=== PATIENT | female | born 1975 | race Caucasian/White ===

== ENCOUNTER 2018-05-04 17:54 | Emergency (ER) | payer BC, SELFPAY ==
--- OUTSIDE RECORDS SUMMARY | 2018-05-04 17:57 | XMS REPORT | Continuity of Care Document ---
:1975 Author Organization Interface Problems Problem Status Onset Date Classification Date Comments Source Reported Medications Medication Details Route Status Patient Ordering Order Source Instructions Provider Date Allergies, Adverse Reactions, Alerts Substance Category Reaction Severity Reaction Status Date Comments Source type Reported Immunizations Immunization Date Given Site Status Last Updated Comments Source Results Order Results Value Reference Date Interpretation Comments Source Name Range Vital Signs Vital Sign Value Date Comments Source Encounters Location Location Encounter Encounter Reason Attending ADM DC Status Source Details Type Number For Provider Date Date Visit Outpatient [id number] [place] 05/04 [facility] Outpatient [id number] [place] 06/[address] Procedures Procedure Code Date Perfomer Comments Source
[2018-05-04] MEDS ORDERED: FENTANYL CITR 100 MCG/2 ML ONE (18:46)
[2018-05-04] MEDS ORDERED: DEXAMETHASONE 10 MG/ML VIAL ONE (18:47)
[2018-05-04] MEDS ORDERED: NA CHLORIDE 0.9% 100 ML IV ONE (18:48)
[2018-05-04] MEDS ORDERED: METHOCARBAMOL 1,000 MG/10 ML VIAL IV ONE (18:48)
[2018-05-04] MEDS ORDERED: NA CHLORIDE 0.9% 250 ML ONE (18:48)
[2018-05-04] MEDS ORDERED: KETOROLAC 30 MG/ML INJ ONE (18:48)
--- NOTE | 2018-05-04 19:55 | RAD REPORT ---
EXAM DESCRIPTION: MRI - C Spine Wo Cont - 05/04/2018 7:33 pm CLINICAL HISTORY: Bilateral arm numbness COMPARISON: None TECHNIQUE: Magnetic resonance imaging of the cervical spine was obtained with coronal and sagittal r econstruction FINDINGS: C2-3, C3-4, C4-5, C5-6 C6-7 and C7-T1 demonstrate no significant abnormality. Small osteophytes within the mid cervical spine do not significantly encroach upon the thecal sac/carmita ral foramina. The spinal cord is normal caliber and signal. No abnormal signal within the bones is noted. IMPRESSION: Minimal spondylosis . No significant abnormality is displayed
[2018-05-04 20:38] LABS: Absolute Lymphocytes (CBC) 1.9 K/uL (0.7-4.9); Absolute Monocytes 0.3 K/uL (0.1-1.3); Absolute Neutrophil 10.6 K/uL (1.8-8.0); Basophils % 0.4 % (0-1.3); Eosinophils % 0.4 % (0-4.4); Hematocrit 38.7 % (36.0-45.0); Lymphocytes % 14.6 % (15.3-44.8); MCH 30.9 pg (27.0-35.0); MCV 89.4 fL (80-100); MPV 8.4 fL (7.6-11.3); Monocytes % 2.7 % (3.3-12.3); RBC Red Blood Cell Count 4.33 M/uL (3.86-4.86)
[2018-05-04 20:56] LABS: ALT/SGPT 30 U/L (12-78); AST/SGOT 12 U/L (15-37); Albumin 3.7 g/dL (3.4-5.0); Alkaline Phosphatase 78 U/L (45-117); BUN Blood Urea Nitrogen 10 mg/dL (7-18); Bicarbonate 27 mmol/L (21-32); Bilirubin Direct < 0.1 mg/dL (0-0.2); Bilirubin Total 0.3 mg/dL (0.2-1.0); Glucose Level 102 mg/dL (74-106); Magnesium 2.3 mg/dL (1.8-2.4); Potassium 3.9 mmol/L (3.5-5.1); Protein, Total 7.1 g/dL (6.4-8.2); Sodium Level 142 mmol/L (136-145); Thyroid Stimulating Hormone 0.768 uIU/mL (0.360-3.740); Troponin (Emerg Dept Use Only) < 0.02 ng/mL (0.0-0.045)
--- NOTE | 2018-05-04 21:08 | ER ---
Nurse's Notes [facility] Name: Luisa Lake Age: 42 yrs Sex: Female : 1975 Arrival Date: 05/04/2018 Time: 17:59 Bed 10 Private MD: Diagnosis: Neuralgia and neuritis, unspecified;Paresthesia of skin;Sprain of ligaments of cervical spine Presentation: 05/04 18:16 Presenting complaint: Patient states: "THE SORE THROAT STARTED A COUPLE OF DAYS. AND I rv FELT THE BURNING SENSATION LIKE THREE DAYS AGO. I WAS GIVEN A SHOT OF TORADOL AND PREDNISONE IN [place]. IT HELPED ME FOR QUITE SOME TIME.". Transition of care: patient was not received from another setting of care. Onset of symptoms was May 02, 2018 at 08:00. Risk Assessment: Do you want to hurt yourself or someone else? Patient reports no desire to harm self or others. Initial Sepsis Screen: Does the patient meet any 2 criteria? No. Patient's initial sepsis screen is negative. Does the patient have a suspected source of infection? No. Patient's initial sepsis screen is negative. Care prior to arrival: None. 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 - Social history:: Smoking status: Patient uses tobacco products, smokes one pack cigarettes per day. - Ebola Screening: : Patient negative for fever greater than or equal to 101.5 degrees Fahrenheit, and additional compatible Ebola Virus Disease symptoms Patient denies exposure to infectious person Patient denies travel to an Ebola-affected area in the 21 days before illness onset. Screenin:23 Abuse screen: Denies threats or abuse. Denies injuries from another. Nutritional rv screening: No deficits noted. Tuberculosis screening: No symptoms or risk factors identified. Fall Risk None identified. Assessment: 18:22 General: Appears in no apparent distress. comfortable, Behavior is calm, cooperative. rv Pain: Complains of pain in THROAT. Neuro: Level of Consciousness is awake, alert, obeys commands, Oriented to person, place, time, situation. Cardiovascular: Capillary refill < 3 seconds. Respiratory: Airway is patent Respiratory effort is even, Breath sounds are clear bilaterally. GI: No signs and/or symptoms were reported involving the gastrointestinal system. : No signs and/or symptoms were reported regarding the genitourinary system. EENT: Throat. Derm: Skin is intact. 21:01 Reassessment: Patient appears in no apparent distress at this time. Patient and/or rv family updated on plan of care and expected duration. Pain level reassessed. Patient is alert, oriented x 3, equal unlabored respirations, skin warm/dry/pink. 22:20 Reassessment: Patient appears in no apparent distress at this time. Patient and/or rv family updated on plan of care and expected duration. Pain level reassessed. Patient is alert, oriented x 3, equal unlabored respirations, skin warm/dry/pink. patient was given turkey sandwich, potato chips, and a cup of apple juice. 23:20 Reassessment: Patient appears in no apparent distress at this time. Patient and/or rv family updated on plan of care and expected duration. Pain level reassessed. Patient is alert, oriented x 3, equal unlabored respirations, skin warm/dry/pink. DR WYATT SEEN AND EXAMINED THE PATIENT. Vital Signs: 18:18 BP 137 / 84; Pulse 86; Pulse Ox 98% on R/A; Weight 86.18 kg (R); rv 21:03 BP 141 / 66; Pulse 63; Pulse Ox 99% on R/A; rv 23:20 BP 138 / 72; Pulse 76; Pulse Ox 98% on R/A; rv ED Course: 17:59 Patient arrived in ED. mr 18:18 Alexx Lozano PA is PHCP. jr8 18:18 Gian Bonds MD is Attending Physician. jr8 18:18 Triage completed. rv 18:23 Arm band placed on right wrist. rv 18:23 Patient has correct armband on for positive identification. Bed in low position. Call rv light in reach. Side rails up X 1. Pulse ox on. NIBP on. 18:45 Inserted saline lock: 20 gauge in right forearm, using aseptic technique. rv 19:27 C Spine Wo Cont Sent. rv 19:33 C Spine Wo Cont In Process Unspecified. EDMS 21:06 Jaret Ayala MD is Referral Physician. jr8 21:12 Dennys Wyatt MD is Hospitalizing Provider. jr8 23:08 Jaret Ayala MD is Referral Physician. jr8 23:21 No provider procedures requiring assistance completed. IV discontinued, bleeding rv controlled, No redness/swelling at site. Pressure dressing applied. Administered Medications: 18:45 Drug: Robaxin 1 grams Route: IVPB; Infused Over: 1 hrs; Site: right forearm; rv 23:20 Follow up: IV Status: Completed infusion rv 18:45 Drug: Decadron - Dexamethasone 10 mg Route: IVP; Site: right forearm; rv 20:30 Follow up: Response: No adverse reaction rv 18:45 Drug: fentaNYL (PF) 75 mcg Route: IVP; Site: right forearm; rv 20:30 Follow up: Response: No adverse reaction rv 18:45 Drug: TORadol 30 mg Route: IVP; Site: right forearm; rv 20:30 Follow up: Response: No adverse reaction rv Outcome: 21:07 Discharge ordered by MD. jr8 21:13 Decision to Hospitalize by Provider. jr8 23:09 Discharge ordered by MD. jr8 23:21 Discharged to home ambulatory. rv 23:21 Condition: good 23:21 Discharge instructions given to patient, Instructed on discharge instructions, follow up and referral plans. medication usage, Demonstrated understanding of instructions, follow-up care, medications, Prescriptions given X 1. 23:22 Patient left the ED. rv Signatures: Dispatcher [facility] Isi Centeno Felicia RN RN fc Alexx Lozano PA PA jr8 Silver Flanagan RN RN rv Corrections: (The following items were deleted from the chart) 21:31 18:16 Acuity: TYSHAWN 4 rv fc
--- NOTE | 2018-05-04 21:08 | EDPHYS ---
Physician Documentation [facility] Name: Luisa Lake Age: 42 yrs Sex: Female : 1975 Arrival Date: 05/04/2018 Time: 17:59 Bed 10 Private MD: ED Physician Gian Bonds HPI: 05/04 19:02 This 42 yrs old Female presents to ER via Ambulatory with complaints of Neck jr8 pain, numbness, tingling. 19:02 The patient or guardian complains of decreased range of motion, pain. The symptoms are jr8 located diffusely. Onset: The symptoms/episode began/occurred acutely, 6 day(s) ago, and became worse and became persistent Has been going on for several weeks . Associated signs and symptoms: Pertinent positives: numbness, Paresthesias tingling, weakness. Severity of symptoms: At their worst the symptoms were moderate, in the emergency department the symptoms are unchanged. The patient has not experienced similar symptoms in the past. The patient has been recently seen by a physician:. Patient seen by GIOVANY Daily twice last week for pain to neck along with numbness, tingling, weakness of both arms. Denies trauma. Came to ED today for continued/worsening of pain. Now having burning sensation to anterior neck with tightening feeling . 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 - Social history:: Smoking status: Patient uses tobacco products, smokes one pack cigarettes per day. - Ebola Screening: : Patient negative for fever greater than or equal to 101.5 degrees Fahrenheit, and additional compatible Ebola Virus Disease symptoms Patient denies exposure to infectious person Patient denies travel to an Ebola-affected area in the 21 days before illness onset. ROS: 19:02 Eyes: Negative for injury, pain, redness, and discharge, ENT: Negative for injury, jr8 pain, and discharge, Cardiovascular: Negative for chest pain, palpitations, and edema, Respiratory: Negative for shortness of breath, cough, wheezing, and pleuritic chest pain, Abdomen/GI: Negative for abdominal pain, nausea, vomiting, diarrhea, and constipation, Back: Negative for injury and pain, MS/Extremity: Negative for injury and deformity, Skin: Negative for injury, rash, and discoloration. 19:02 Neck: Positive for pain with movement, pain at rest, tenderness. 19:02 Neuro: Positive for numbness, tingling, of the neck. Exam: 19:02 Head/Face: Normocephalic, atraumatic. Eyes: Pupils equal round and reactive to light, jr8 extra-ocular motions intact. Lids and lashes normal. Conjunctiva and sclera are non-icteric and not injected. Cornea within normal limits. Periorbital areas with no swelling, redness, or edema. ENT: Nares patent. No nasal discharge, no septal abnormalities noted. Tympanic membranes are normal and external auditory canals are clear. Oropharynx with no redness, swelling, or masses, exudates, or evidence of obstruction, uvula midline. Mucous membranes moist. Chest/axilla: Normal chest wall appearance and motion. Nontender with no deformity. No lesions are appreciated. Cardiovascular: Regular rate and rhythm with a normal S1 and S2. No gallops, murmurs, or rubs. Normal PMI, no JVD. No pulse deficits. Respiratory: Lungs have equal breath sounds bilaterally, clear to auscultation and percussion. No rales, rhonchi or wheezes noted. No increased work of breathing, no retractions or nasal flaring. Abdomen/GI: Soft, non-tender, with normal bowel sounds. No distension or tympany. No guarding or rebound. No evidence of tenderness throughout. Back: No spinal tenderness. No costovertebral tenderness. Full range of motion. Skin: Warm, dry with normal turgor. Normal color with no rashes, no lesions, and no evidence of cellulitis. MS/ Extremity: Pulses equal, no cyanosis. Neurovascular intact. Full, normal range of motion. 19:02 Neuro: Awake and alert, GCS 15, oriented to person, place, time, and situation. Cranial nerves II-XII grossly intact. Motor strength 5/5 in all extremities. Sensory grossly intact. Cerebellar exam normal. Normal gait. 19:02 Neck: External neck: tenderness, that is moderate, of the left mid cervical area, right mid cervical area, left trapezius, lower cervical area and right trapezius, C-spine: vertebral tenderness, that is moderate, appreciated at C5, C6 and C7, Thyroid: appears normal, Trachea: is midline with no obvious abnormalities, ROM/movement: pain, that is moderate, with any movement, Meningeal signs: are not present, Kernig's sign is negative, Brudzinski's sign is negative, Lymph nodes: no appreciated lymphadenopathy. Vital Signs: 18:18 BP 137 / 84; Pulse 86; Pulse Ox 98% on R/A; Weight 86.18 kg (R); rv 21:03 BP 141 / 66; Pulse 63; Pulse Ox 99% on R/A; rv 23:20 BP 138 / 72; Pulse 76; Pulse Ox 98% on R/A; rv MDM: 18:18 Patient medically screened. jr8 21:04 Differential diagnosis: arthritis, Cervical Disc Herniation Cervical Discogenic Pain jr8 Cervical Facet Syndrome Cervical Raiculopathy Cervical Spondylosis cervical strain, Degenerative Disc Disease Epidural Abcess Spondylosis discitis. Data reviewed: I have discussed the patient's presentation/case with the attending Emergency Department Physician;. Data reviewed: vital signs, nurses notes, diagnostic data from outside facility, CBC, white blood cell count, hemoglobin, hematocrit, platelets, reticulocyte count, electrolytes, sodium, potassium, chloride, serum bicarbonate, BUN, creatinine, serum glucose, radiologic studies, CT scan, plain films, lab test result(s), radiologic studies, MRI. Counseling: I had a detailed discussion with the patient and/or guardian regarding: the historical points, exam findings, and any diagnostic results supporting the discharge/admit diagnosis, lab results, radiology results. Response to treatment: the patient's symptoms have mildly improved after treatment. 21:21 ED course: Consulted Dr. Wyatt and Dr. Redmond on case. Dr. Wyatt will evaluate down in ED jr8 as well since patient is having such odd neurologic symptoms without acute findings on imaging or blood work . 23:07 Data interpreted: Pulse oximetry: on room air is 99 %. Interpretation: normal. jr8 Counseling: I had a detailed discussion with the patient and/or guardian regarding: the need for outpatient follow up, a neurologist, to return to the emergency department if symptoms worsen or persist or if there are any questions or concerns that arise at home. ED course: Dr. Wyatt evaluated patient and agrees that patient can go home for further outpatient workup. No indication for admission at this time. Patient is good with this and will f/u with Dr. Ayala . 05/04 20:11 Order name: Basic Metabolic Panel [facility] 05/04 20:11 Order name: CBC with Diff; Complete Time: 20:58 [facility] 05/04 20:11 Order name: LFT's [facility] 05/04 20:11 Order name: Magnesium [facility] 05/04 20:11 Order name: Troponin (emerg Dept Use Only) [facility] 05/04 20:11 Order name: ESR; Complete Time: 20:58 [facility] 05/04 18:36 Order name: C Spine Wo Cont; Complete Time: 19:57 EDMS 05/04 20:11 Order name: CRP [facility] 05/04 20:11 Order name: TSH; Complete Time: 20:58 [facility] 05/04 20:12 Order name: Basic Metabolic Panel; Complete Time: 20:58 EDMS 05/04 20:12 Order name: Liver (Hepatic) Function; Complete Time: 20:58 EDMS 05/04 20:12 Order name: Magnesium; Complete Time: 20:58 EDMS 05/04 20:12 Order name: Troponin (Emerg Dept Use Only); Complete Time: 20:58 EDMS 05/04 20:12 Order name: C-Reactive Protein; Complete Time: 20:58 EDMS 05/04 18:35 Order name: IV; Complete Time: 19:27 [facility] 05/04 20:11 Order name: Labs collected and sent; Complete Time: 20:29 [facility] 05/04 20:11 Order name: O2 Per Protocol; Complete Time: 20:29 [facility] 05/04 20:11 Order name: O2 Sat Monitoring; Complete Time: 20:30 [facility] Administered Medications: 18:45 Drug: Robaxin 1 grams Route: IVPB; Infused Over: 1 hrs; Site: right forearm; rv 23:20 Follow up: IV Status: Completed infusion rv 18:45 Drug: Decadron - Dexamethasone 10 mg Route: IVP; Site: right forearm; rv 20:30 Follow up: Response: No adverse reaction rv 18:45 Drug: fentaNYL (PF) 75 mcg Route: IVP; Site: right forearm; rv 20:30 Follow up: Response: No adverse reaction rv 18:45 Drug: TORadol 30 mg Route: IVP; Site: right forearm; rv 20:30 Follow up: Response: No adverse reaction rv Disposition: 05/05 09:28 Co-signature as Attending Physician, Gian Bonds MD I agree with the assessment and kaleb plan of care. Disposition: 05/04/18 23:09 Discharged to Home. Impression: Neuralgia and neuritis, unspecified, Paresthesia of skin, Sprain of ligaments of cervical spine. - Condition is Stable. - Discharge Instructions: Neuropathic Pain, Paresthesia, Cervical Sprain. - Medication Reconciliation Form, Thank You Letter, Antibiotic Education, Prescription Opioid Use form. - Follow up: Jaret Ayala MD; When: 2 - 3 days; Reason: Recheck today's complaints, Continuance of care, Re-evaluation by your physician. - Problem is new. - Symptoms have improved. - Notes: Do not take the tramadol that was previously prescribed Can continue the Gabapentin and Robaxin Signatures: Dispatcher [employer] EDGain Dang MD MD cha Roszak, Josh, PA PA [facility] Silver Flanagan RN RN rv Corrections: (The following items were deleted from the chart) 05/04 21:08 19:02 Onset: The symptoms/episode began/occurred acutely, 6 day(s) ago, kit pantoja 21:12 21:04 Data reviewed: vital signs, nurses notes, diagnostic data from outside facility, Zechariah CBC, white blood cell count, hemoglobin, hematocrit, platelets, reticulocyte count, electrolytes, sodium, potassium, chloride, serum bicarbonate, BUN, creatinine, serum glucose, radiologic studies, CT scan, plain films, lab test result(s), radiologic studies, MRI, Zechariah 21:12 21:04 Counseling: I had a detailed discussion with the patient and/or guardian kit regarding: the historical points, exam findings, and any diagnostic results supporting the discharge/admit diagnosis, lab results, radiology results, the need for outpatient follow up, a neurologist, to return to the emergency department if symptoms worsen or persist or if there are any questions or concerns that arise at home, kit 21:12 21:07 05/04/2018 21:07 Discharged to Home. Impression: Strain of muscle, fascia and jr8 tendon at neck level; Paresthesia of skin. Condition is Stable. Forms are Medication Reconciliation Form, Thank You Letter, Antibiotic Education, Prescription Opioid Use. Follow up: Jaret Ayala; When: 1 - 2 days; Reason: Recheck today's complaints, Continuance of care, Re-evaluation by your physician. Problem is new. Symptoms have improved. jr8 21:20 21:13 Hospitalization Ordered by Dennys Wyatt MD for Observation. Preliminary jr8 diagnosis is Paresthesia of skin; Neuralgia and neuritis, unspecified; Intractable pain. Bed requested for Telemetry/MedSurg (observation). Status is Observation. Condition is Stable. Problem is new. Symptoms have improved. UTI on Admission? No. jr8 23:22 23:09 05/04/2018 23:09 Discharged to Home. Impression: Neuralgia and neuritis, rv unspecified; Paresthesia of skin; Sprain of ligaments of cervical spine. Condition is Stable. Forms are Medication Reconciliation Form, Thank You Letter, Antibiotic Education, Prescription Opioid Use. Follow up: Jaret Ayala; When: 2 - 3 days; Reason: Recheck today's complaints, Continuance of care, Re-evaluation by your physician. Problem is new. Symptoms have improved. jr8
--- NOTE | 2018-05-05 03:52 | CON ---
Reason For Consultation: The patient with generalized pain and body aches. History Of Present Illness: This is a 42-year-old female who has a prior history of a T12 compression fracture and chronic pain as well as a prior diagnosis of fibromyalgia, who has been following up with a neurologist on and off for many years. She has stopped seeing the neurologist about 3 years ago, but followed up with him per recommendations from the emergency room and her primary care provider. She started feeling poorly about a week ago when she went to [facility]; and at that time, they gave her anti-inflammatories, steroids, muscle relaxers, and pain medication for discharge. She was also given Neurontin along with Zoloft and tramadol for pain. She was also placed on a statin, for what reason I am not really sure. Especially, in light of her myopathy, I think this was a poor choice of medications. The patient was sent to the ER as she was not getting any better; and once again, she was given similar treatments along with Robaxin. The patient followed up with Dr. Noel , her primary care provider, and then she followed up with Dr. Ayala, her neurologist. Dr. Ayala recommended only taking the Robaxin and the Neurontin. The patient was also advised by Dr. Ayala to get multiple lab testing as well as imaging studies. Here, she had an MRI of her C-spine, which did not reveal any significant abnormalities except for some minimal spondylosis. There was no cord compression. The patient has had a lot of stressors in her life. Few years ago, her ; and then a year ago, her best friend ; and about a month ago, her mother . Unfortunately, she has dealt with a lot of deaths in her family and in her close friends, which has made her life extremely difficult. She has a lot of tension and stress, and she had actually filed a lawsuit against her 's job for him dying while he was at work. This has created a lot of stress in her life. I believe a lot of stressors in her life have ultimately led to a lot of her pain. She does have muscle tenderness on examination. Neurologically, her neurologic examination was unremarkable. She does have point tenderness on the back on both sides of her cervical spine and thoracic spine as well as anteriorly. She has some difficulty swallowing, and she said she had some microscopic hematuria. All of this can be evaluated and worked up further as an outpatient. Clinically, at this time, the patient does not need emergent hospitalization. She can follow up with her neurologist and primary care provider to get further assessment and treatment of her medical condition. MCC, she will need treatment for her anxiety, and her numerous stressors if she wants to live any decent quality of life. Otherwise, her symptoms will probably progress, and she will deal with more physical ailments as days progress. Review of Systems: A 10-point review of systems is otherwise unremarkable. Past Medical History: Dyslipidemia and chronic low back pain. Past Surgical History: and hysterectomy. Allergies: TO MORPHINE, IODINE, PENICILLIN, PEANUTS, LATEX, AND RUBBER. Social History: The patient smokes a pack a day. Denies any drugs or alcohol use. Family History: Noncontributory. Medications: Medications have been reviewed. - Vital Signs Temperature: 98.6 F Blood Pressure: 138/72 Pulse: 76 Respirations: 18 Pulse Ox (%): 96 - Physical Exam General: Alert, In no apparent distress, Oriented x3 HEENT: Atraumatic, Normocephalic, PERRLA, Mucous membr. moist/pink Neck: Supple, 2+ carotid pulse no bruit, JVD not distended, No Thyromegaly, No LAD Respiratory: Clear to auscultation bilaterally, Normal air movement Cardiovascular: Regular rate/rhythm, Normal S1 S2, No murmurs Gastrointestinal: Normal bowel sounds, Soft and benign, Non-distended, No tenderness, No rebound, No guarding Musculoskeletal: No clubbing, No swelling, No contractures, Tenderness Integumentary: No rashes Neurological: Normal gait, Normal speech, Normal strength at 5/5 x4 extr, Normal tone, Sensation intact, Cranial nerves 3-12 intact, Normal reflexes 2+ Other Physical/Emotional Findings: Fundus/ophthalmic exam: no abnormality exceot minimal steel wiring in the nasal branch of retinal artery; no papillaedema Laboratory Data: Labs have been reviewed. Assessment: 1. The patient with chronic pain and myopathy. 2. Psychogenic back pain. 3. Depression. Plan: Plan at this time is to continue with Neurontin along with a muscle relaxer. She has been advised not to take the tramadol because she gets flushing. We will prescribe her on [place] 10/325 one p.o. q.12 hours and give her 20 pills. She will need to follow with a pain specialist, but the main thing she really needs is counseling regarding all the deaths that she has faced in her life recently. Hopefully, she will be able to get a handle of this , and she will be able to start living life a little more normally. She is stable for discharge as she does not meet criteria for inpatient. She does not need to be admitted for observation as she has had numerous workups and numerous followups with physicians and specialists recently. She does need outpatient followup; and hopefully, they can get her symptoms controlled. TABITHA Voice ID: [id number] Report ID: [id number]
--- NOTE | 2018-05-05 05:50 | P.HP ---
Physical Examination - Vital Signs Temperature: 98.6 F Blood Pressure: 138/72 Pulse: 76 Respirations: 18 Pulse Ox (%): 96 - Physical Exam General: Alert, In no apparent distress, Oriented x3 HEENT: Atraumatic, Normocephalic, PERRLA, Mucous membr. moist/pink Neck: Supple, 2+ carotid pulse no bruit, JVD not distended, No Thyromegaly, No LAD Respiratory: Clear to auscultation bilaterally, Normal air movement Cardiovascular: Regular rate/rhythm, Normal S1 S2, No murmurs Gastrointestinal: Normal bowel sounds, Soft and benign, Non-distended, No tenderness, No rebound, No guarding Musculoskeletal: No clubbing, No swelling, No contractures, Tenderness Integumentary: No rashes Neurological: Normal gait, Normal speech, Normal strength at 5/5 x4 extr, Normal tone, Sensation intact, Cranial nerves 3-12 intact, Normal reflexes 2+ Other Physical/Emotional Findings: Fundus/ophthalmic exam: no abnormality exceot minimal steel wiring in the nasal branch of retinal artery; no papillaedema - Studies Laboratory Data (last 24 hrs) 05/04/18 20:25: WBC 12.9 H, Hgb 13.4, Hct 38.7, Plt Count 258 05/04/18 20:25: Sodium 142, Potassium 3.9, BUN 10, Creatinine 0.70, Glucose 102 , Magnesium 2.3, Total Bilirubin 0.3, AST 12 L, ALT 30, Alkaline Phosphatase 78 Assessment & Plan - Advance Directives Does patient have a Living Will: No Does patient have a Durable POA for Healthcare: No
--- NOTE | 2018-05-05 05:56 | P.CNS ---
Date of Consult: 05/04/18 Reason for Consult: Point tenderness and uncontrolled pain Requesting Physician: Jam Redmond Primary Care Provider: tanner Chief Complaint: The patient with generalized pain and body aches. History of Present Illness: History Of Present Illness: This is a 42-year-old female who has a prior history of a T12 compression fracture and chronic pain as well as a prior diagnosis of fibromyalgia, who has been following up with a neurologist on and off for many years. She has stopped seeing the neurologist about 3 years ago, but followed up with him per recommendations from the emergency room and her primary care provider. She started feeling poorly about a week ago when she went to [facility]; and at that time, they gave her anti-inflammatories, steroids, muscle relaxers, and pain medication for discharge. She was also given Neurontin along with Zoloft and tramadol for pain. She was also placed on a statin, for what reason I am not really sure. Especially, in light of her myopathy, I think this was a poor choice of medications. The patient was sent to the ER as she was not getting any better; and once again, she was given similar treatments along with Robaxin. The patient followed up with Dr. Noel , her primary care provider, and then she followed up with Dr. Ayala, her neurologist. Dr. Ayala recommended only taking the Robaxin and the Neurontin. The patient was also advised by Dr. Ayala to get multiple lab testing as well as imaging studies. Here, she had an MRI of her C-spine, which did not reveal any significant abnormalities except for some minimal spondylosis. There was no cord compression. The patient has had a lot of stressors in her life. Few years ago, her ; and then a year ago, her best friend ; and about a month ago, her mother . Unfortunately, she has dealt with a lot of deaths in her family and in her close friends, which has made her life extremely difficult. She has a lot of tension and stress, and she had actually filed a lawsuit against her 's job for him dying while he was at work. This has created a lot of stress in her life. I believe a lot of stressors in her life have ultimately led to a lot of her pain. She does have muscle tenderness on examination. Neurologically, her neurologic examination was unremarkable. She does have point tenderness on the back on both sides of her cervical spine and thoracic spine as well as anteriorly. She has some difficulty swallowing, and she said she had some microscopic hematuria. All of this can be evaluated and worked up further as an outpatient. Clinically, at this time, the patient does not need emergent hospitalization. She can follow up with her neurologist and primary care provider to get further assessment and treatment of her medical condition. assisted, she will need treatment for her anxiety, and her numerous stressors if she wants to live any decent quality of life. Otherwise, her symptoms will probably progress, and she will deal with more physical ailments as days progress. Review of Systems: A 10-point review of systems is otherwise unremarkable. Past Medical History: Dyslipidemia and chronic low back pain. Past Surgical History: and hysterectomy. Allergies: TO MORPHINE, IODINE, PENICILLIN, PEANUTS, LATEX, AND RUBBER. Social History: The patient smokes a pack a day. Denies any drugs or alcohol use. Family History: Noncontributory. Medications: Medications have been reviewed. Home medications list reviewed: No - Past Medical/Surgical History Diabetic: No -: Cord compression-T12 -: Fibromyalgia -: Dyslipidemia Past Surgical History: Patient denies surgical history -: -: Hysterectomy - Family History Father Family History: Reviewed- Non-Contributory - Social History Smoking Status: Current every day smoker Alcohol use: No CD- Drugs: No Review of Systems 10-point ROS is otherwise unremarkable Physical Examination Temp Pulse Resp BP Pulse Ox 98.6 F 76 18 138/72 96 05/05/18 05:49 05/05/18 05:49 05/05/18 05:49 05/05/18 05:49 05/05/18 05:49 General: Alert, In no apparent distress, Oriented x3 HEENT: Atraumatic, Normocephalic, PERRLA Neck: Supple, 2+ carotid pulse no bruit, JVD not distended, No Thyromegaly Respiratory: Clear to auscultation bilaterally, Normal air movement Cardiovascular: Regular rate/rhythm, Normal S1 S2, No murmurs Gastrointestinal: Normal bowel sounds, Hypoactive, Soft and benign, Non- distended Musculoskeletal: No clubbing, No swelling Integumentary: No rashes, No breakdown, No significant lesion, No tenderness/ swelling Neurological: Normal gait, Normal speech, Normal strength at 5/5 x4 extr, Normal tone, Sensation intact, Cranial nerves 3-12 intact Laboratory Data (last 24 hrs) 05/04/18 20:25: WBC 12.9 H, Hgb 13.4, Hct 38.7, Plt Count 258 05/04/18 20:25: Sodium 142, Potassium 3.9, BUN 10, Creatinine 0.70, Glucose 102 , Magnesium 2.3, Total Bilirubin 0.3, AST 12 L, ALT 30, Alkaline Phosphatase 78 Conclusions/ Impression: Assessment: 1. The patient with chronic pain and myopathy. 2. Psychogenic back pain. 3. Depression. Plan: Plan at this time is to continue with Neurontin along with a muscle relaxer. She has been advised not to take the tramadol because she gets flushing. We will prescribe her on [place] one p.o. q.12 hours and give her 20 pills. She will need to follow with a pain specialist, but the main thing she really needs is counseling regarding all the deaths that she has faced in her life recently. Hopefully, she will be able to get a handle of this , and she will be able to start living life a little more normally. She is stable for discharge as she does not meet criteria for inpatient. She does not need to be admitted for observation as she has had numerous workups and numerous followups with physicians and specialists recently. She does need outpatient followup; and hopefully, they can get her symptoms controlled. Critical Care: No Time Spent Managing Pts care (In Minutes): 55
== END 2018-05-04 23:22 | disposition home or self-care (01) ==
LOC: ER 17:54
DX: M79.2 Neuralgia and neuritis, unspecified (principal); S13.4XXA Sprain of ligaments of cervical spine, initial encounter; F17.210 Nicotine dependence, cigarettes, uncomplicated; Z88.0 Allergy status to penicillin; Z88.5 Allergy status to narcotic agent; Z88.9 Allergy status to unspecified drugs, medicaments and biological substances; Z91.010 Allergy to peanuts; Z91.040 Latex allergy status
CPT/HCPCS: 36415; 72141; 80048; 80076; 83735; 84443; 84484; 85025; 85652; 86140; 96365; 96366; 96375; 99284; J1100; J2800; J3010

== ENCOUNTER 2018-05-05 15:23 | Emergency (ER) | payer SELFPAY ==
--- OUTSIDE RECORDS SUMMARY | 2018-05-05 15:25 | XMS REPORT | Continuity of Care Document ---
[...] Number For Provider Date Date Visit Outpatient [id number] PORTIS 05/04 [facility] Outpatient [id number] PORTIS 06/[address] Procedures Procedure Code Date Perfomer Comments Source
[2018-05-05 16:23] LABS: Absolute Lymphocytes (CBC) 2.6 K/uL (0.7-4.9); Absolute Monocytes 1.4 K/uL (0.1-1.3); Absolute Neutrophil 15.2 K/uL (1.8-8.0); Basophils % 0.1 % (0-1.3); Hematocrit 40.4 % (36.0-45.0); Lymphocytes % 13.6 % (15.3-44.8); MCH 30.6 pg (27.0-35.0); MCV 89.1 fL (80-100); MPV 8.5 fL (7.6-11.3); Monocytes % 7.2 % (3.3-12.3); RBC Red Blood Cell Count 4.53 M/uL (3.86-4.86)
[2018-05-05 16:29] LABS: Potassium 3.7 mmol/L (3.5-5.1)
[2018-05-05] MEDS ORDERED: NA CHLORIDE 0.9% 1,000 ML ONE (16:54)
[2018-05-05 17:42] LABS: CSF Glucose 78 mg/dL (40-70)
[2018-05-05 17:59] LABS: Appearance CLEAR (CLEAR); Body Fluid Source CSF; Color of fluid Colorless (COLORLESS); Fluid Total Volume 7.5 ml
[2018-05-05 18:03] LABS: Body Fluid WBC 2 /mm^3
[2018-05-05 18:21] LABS: Body Fluid Source CSF
[2018-05-05 18:22] LABS: Appearance CLEAR (CLEAR); Body Fluid WBC 0 /mm^3; Color of fluid Colorless (COLORLESS)
--- NOTE | 2018-05-05 18:48 | RAD REPORT ---
EXAM DESCRIPTION: CT - Abdomen Pelvis Wo Contrast - 05/05/2018 6:15 pm CLINICAL HISTORY: Abdominal pain COMPARISON: None. TECHNIQUE: Axial [address] imaging of the abdomen and pelvis was performed without IV contrast. No IV contrast was given because of allergy, abnormal renal function, patient refusal or physician re quest. No oral contrast. All CT scans are performed using dose optimization technique as appropriate and may include automated exposure control or mA/KV adjustment according to patient size. FINDINGS: No suspicious findings in the lung bases. The liver, spleen and pancreas show no suspicious findings on non-contrast imaging. Gallbladder and b iliary tree are also without suspicious finding. No hydronephrosis or suspicious renal mass. No significant adrenal finding. Isodense renal masses an d pyelonephritis cannot be excluded in the absence of IV contrast. The urinary bladder is without sig nificant finding. Uterus is absent. Ovaries are absent or atrophic. No adnexal mass. No dilated bowel loops or bowel wall thickening. No free air, free fluid or inflammatory stranding. N o mass or bulky lymphadenopathy. No omental thickening. A very small 12 millimeter umbilical hernia i s present. No inguinal region hernia confirmed. Appendix is normal. No suspicious bony findings. IMPRESSION: Non-contrast enhanced CT abdomen and pelvis imaging show no significant or suspicious fi nding. Full assessment is limited is the absence of IV contrast.
[2018-05-05 19:11] LABS: Urine Blood 1+ (NEG); Urine Glucose NEGATIVE (NEG); Urine Protein NEGATIVE (NEG)
--- NOTE | 2018-05-05 19:11 | RAD REPORT ---
EXAM DESCRIPTION: RAD - Chest Single View - 05/05/2018 6:19 pm CLINICAL HISTORY: Dyspnea COMPARISON: None. TECHNIQUE: AP portable chest image was obtained 1804 hours . FINDINGS: Lung volumes are low. Portable technique, shallow inspiration and body habitus accentuate lung markings. No peripheral mass or consolidation. No significant failure or volume overload. Heart and vasculature are normal. No measurable pleural effusion and no pneumothorax. No acute bony abnorma lity seen. No acute aortic findings suspected. IMPRESSION: No acute cardiopulmonary process.
--- NOTE | 2018-05-05 19:26 | ER ---
Nurse's Notes [facility] Name: Luisa Lake Age: 42 yrs Sex: Female : 1975 Arrival Date: 05/05/2018 Time: 15:26 Bed 5 Private MD: Peter Noel Diagnosis: Neuralgia and neuritis, unspecified;Other chronic pain Presentation: 05/05 15:30 Presenting complaint: Patient states: Burning sensation to face, chest, arms, and body aj with pain in both legs. Seen in this ER yesterday for same complaint, DX with neuropathic pain and seen by Neurologist yesterday for this complaint. Patient drove herself to ER and ambulated with steady gait. Patient has not picked up RX provided yesterday.. Seen by [facility] on Thursday for this complaint. Transition of care: patient was not received from another setting of care. Onset of symptoms was May 04, 2018. Risk Assessment: Do you want to hurt yourself or someone else? Patient reports no desire to harm self or others. Initial Sepsis Screen: Does the patient meet any 2 criteria? No. Patient's initial sepsis screen is negative. Does the patient have a suspected source of infection? No. Patient's initial sepsis screen is negative. Care prior to arrival: None. 15:30 Method Of Arrival: Ambulatory 15:30 Acuity: TYSHAWN 4 aj Triage Assessment: 15:33 General: Appears in no apparent distress. comfortable, Behavior is calm, cooperative, aj appropriate for age. Pain: Complains of pain in entire body. Neuro: Level of Consciousness is awake, alert, obeys commands, Oriented to person, place, time, situation, Appropriate for age. Respiratory: Airway is patent Respiratory effort is even, unlabored, Respiratory pattern is regular, symmetrical. Derm: Skin is intact, is healthy with good turgor, Skin is pink, warm \T\ dry. normal. Musculoskeletal: Reports pain in entire body. 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 - Social history:: Smoking status: Patient uses tobacco products, smokes one pack cigarettes per day. - Ebola Screening: : Patient negative for fever greater than or equal to 101.5 degrees Fahrenheit, and additional compatible Ebola Virus Disease symptoms Patient denies exposure to infectious person Patient denies travel to an Ebola-affected area in the 21 days before illness onset No symptoms or risks identified at this time. Screenin:56 Abuse screen: Denies threats or abuse. Denies injuries from another. Nutritional mg2 screening: No deficits noted. Tuberculosis screening: No symptoms or risk factors identified. Fall Risk IV access (20 points). Assessment: 15:57 General: Appears in no apparent distress. comfortable, Behavior is calm, cooperative. mg2 Pain: Complains of pain in whole body Pain does not radiate. Pain currently is 2 out of 10 on a pain scale. Quality of pain is described as burning, aching, Pain began gradually. Neuro: Level of Consciousness is awake, alert, obeys commands, Oriented to person, place, time, situation. Cardiovascular: Reports chest pain, shortness of breath. Respiratory: Airway is patent Respiratory effort is even, unlabored, Respiratory pattern is regular, symmetrical. GI: No signs and/or symptoms were reported involving the gastrointestinal system. : No signs and/or symptoms were reported regarding the genitourinary system. EENT: No signs and/or symptoms were reported regarding the EENT system. Derm: Skin is intact, is healthy with good turgor, Skin is pink, warm \T\ dry. normal. Musculoskeletal: Circulation, motion, and sensation intact. Capillary refill < 3 seconds, Reports numbness in whole body. 19:15 Reassessment: Patient appears in no apparent distress at this time. Patient and/or cc3 family updated on plan of care and expected duration. Pain level reassessed. Patient is alert, oriented x 3, equal unlabored respirations, skin warm/dry/pink. 20:10 Reassessment: Patient appears in no apparent distress at this time. Patient and/or cc3 family updated on plan of care and expected duration. Pain level reassessed. Patient is alert, oriented x 3, equal unlabored respirations, skin warm/dry/pink. Patient discharged home with prescription given. IV cannula removed and patient left ER vitally stable and ambulatory. Vital Signs: 15:36 BP 144 / 73; Pulse 100; Resp 19; Temp 98.1; Pulse Ox 99% on R/A; Weight 80.74 kg; aj Height 5 ft. 2 in. (157.48 cm); 16:52 BP 127 / 74; Pulse 90; Resp 18; Pulse Ox 100% on R/A; mg2 18:51 BP 136 / 80; Pulse 81; Resp 18; Pulse Ox 100% on R/A; mg2 20:00 BP 135 / 73; Pulse 63; Resp 17 S; Pulse Ox 97% on R/A; Pain 2/10; cc3 15:36 Body Mass Index 32.56 (80.74 kg, 157.48 cm) aj ED Course: 15:26 Patient arrived in ED. mr 15:26 Peter Noel MD is Private Physician. mr 15:32 Triage completed. aj 15:36 Arm band placed on right wrist. Patient placed in an exam room. aj 15:39 Benito Oneal RN is Primary Nurse. mg2 15:42 Alexx Lozano PA is PHCP. jr8 15:42 Baljinder Carrizales MD is Attending Physician. jr8 15:56 Inserted saline lock: 22 gauge in right antecubital area, using aseptic technique. mg2 Blood collected. 15:58 Patient has correct armband on for positive identification. Bed in low position. Call mg2 light in reach. Side rails up X 1. Pulse ox on. NIBP on. 16:43 Assist provider with lumbar puncture: Set up LP tray. Performed by Alexx ANGULO CSF mg2 is clear. Sample collected. Sample sent to lab. Puncture site dressed with band aid, Procedure was successful. Patient tolerated. 18:[address] mw3 18:15 CT completed. Patient tolerated procedure well. Patient moved back from CT. nj 18:15 CT Abd/Pelvis - Without Cont In Process Unspecified. EDMS 18:19 XRAY Chest (1 view) In Process Unspecified. EDMS 19:25 Jaret Ayala MD is Referral Physician. jr8 20:10 IV discontinued, intact, bleeding controlled, No redness/swelling at site. Pressure cc3 dressing applied. Administered Medications: 16:52 Drug: NS 0.9% 1000 ml Route: IV; Rate: 1000 ml; Site: right antecubital; mg2 19:40 Drug: TORadol 30 mg Route: IVP; Site: right antecubital; cc3 20:10 Follow up: Response: No adverse reaction; Pain is decreased cc3 19:43 Drug: fentaNYL (PF) 50 mcg Route: IVP; Site: right antecubital; cc3 20:10 Follow up: Response: No adverse reaction; Pain is decreased cc3 Outcome: 19:26 Discharge ordered by MD. jr8 20:10 Discharged to home ambulatory. cc3 20:10 Condition: stable 20:10 Discharge instructions given to patient, Instructed on discharge instructions, follow up and referral plans. medication usage, Demonstrated understanding of instructions, follow-up care, medications, Prescriptions given X 2. 20:16 Patient left the ED. cc3 Signatures: Dispatcher [employer] EDMS Flora Paredes RN RN aj Rivera, Mary mr Roszak, Josh, PA PA jrFabricio Doss Michele, RN RN [facility] Tammy Hernandez 3 Aditi Gentile cc3 Corrections: (The following items were deleted from the chart) 15:36 15:30 Presenting complaint: Patient states: Burning sensation to face, chest, arms, and aj body with pain in both legs. Seen in this ER yesterday for same complaint, DX with neuropathic pain. Patient drover herself to ER and ambulated with steady gait. Patient has not picked up RX provided yesterday aj 15:37 15:30 Presenting complaint: Patient states: Burning sensation to face, chest, arms, and aj body with pain in both legs. Seen in this ER yesterday for same complaint, DX with neuropathic pain. Patient drove herself to ER and ambulated with steady gait. Patient has not picked up RX provided yesterday or scheduled follow up appointment with Neurologist. Seen by [facility] on Thursday for this complaint. aj
--- NOTE | 2018-05-05 19:26 | EDPHYS ---
Physician Documentation [facility] Name: Luisa Lake Age: 42 yrs Sex: Female : 1975 Arrival Date: 05/05/2018 Time: 15:26 Bed 5 Private MD: Peter Noel ED Physician Baljinder Carrizales HPI: 05/05 16:57 This 42 yrs old Female presents to ER via Ambulatory with complaints of Leg jr8 Pain. 16:57 Patient seen yesterday for continued burning sensation and pain to upper extremities jr8 along with decreased appetite, nausea, and diarrhea. Came back again today now reporting lower extremity burning sensation and pain . Severity of symptoms: At their worst the symptoms were moderate in the emergency department the symptoms are unchanged. The patient has not experienced similar symptoms in the past. The patient has been recently seen by a physician:. 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 - Social history:: Smoking status: Patient uses tobacco products, smokes one pack cigarettes per day. - Ebola Screening: : Patient negative for fever greater than or equal to 101.5 degrees Fahrenheit, and additional compatible Ebola Virus Disease symptoms Patient denies exposure to infectious person Patient denies travel to an Ebola-affected area in the 21 days before illness onset No symptoms or risks identified at this time. ROS: 16:57 Eyes: Negative for injury, pain, redness, and discharge, ENT: Negative for injury, jr8 pain, and discharge, Neck: Negative for injury, pain, and swelling, Cardiovascular: Negative for chest pain, palpitations, and edema, Respiratory: Negative for shortness of breath, cough, wheezing, and pleuritic chest pain, Back: Negative for injury and pain, MS/Extremity: Negative for injury and deformity, Skin: Negative for injury, rash, and discoloration. 16:57 Abdomen/GI: Positive for abdominal pain, nausea, diarrhea, Negative for vomiting, abdominal cramps, abdominal distension, anorexia, dysphagia, hematemesis, black/tarry stool, rectal pain, rectal bleeding, bowel incontinence, flatulence. 16:57 Neuro: Positive for headache, numbness, tingling, weakness. Exam: 16:57 Eyes: Pupils equal round and reactive to light, extra-ocular motions intact. Lids and jr8 lashes normal. Conjunctiva and sclera are non-icteric and not injected. Cornea within normal limits. Periorbital areas with no swelling, redness, or edema. ENT: Nares patent. No nasal discharge, no septal abnormalities noted. Tympanic membranes are normal and external auditory canals are clear. Oropharynx with no redness, swelling, or masses, exudates, or evidence of obstruction, uvula midline. Mucous membranes moist. Neck: Trachea midline, no thyromegaly or masses palpated, and no cervical lymphadenopathy. Supple, full range of motion without nuchal rigidity, or vertebral point tenderness. No Meningismus. Cardiovascular: Regular rate and rhythm with a normal S1 and S2. No gallops, murmurs, or rubs. Normal PMI, no JVD. No pulse deficits. Respiratory: Lungs have equal breath sounds bilaterally, clear to auscultation and percussion. No rales, rhonchi or wheezes noted. No increased work of breathing, no retractions or nasal flaring. Abdomen/GI: Soft, non-tender, with normal bowel sounds. No distension or tympany. No guarding or rebound. No evidence of tenderness throughout. Back: No spinal tenderness. No costovertebral tenderness. Full range of motion. Skin: Warm, dry with normal turgor. Normal color with no rashes, no lesions, and no evidence of cellulitis. MS/ Extremity: Pulses equal, no cyanosis. Neurovascular intact. Full, normal range of motion. Neuro: Awake and alert, GCS 15, oriented to person, place, time, and situation. Cranial nerves II-XII grossly intact. Motor strength 5/5 in all extremities. Sensory grossly intact. Cerebellar exam normal. Normal gait. Vital Signs: 15:36 BP 144 / 73; Pulse 100; Resp 19; Temp 98.1; Pulse Ox 99% on R/A; Weight 80.74 kg; aj Height 5 ft. 2 in. (157.48 cm); 16:52 BP 127 / 74; Pulse 90; Resp 18; Pulse Ox 100% on R/A; mg2 18:51 BP 136 / 80; Pulse 81; Resp 18; Pulse Ox 100% on R/A; mg2 20:00 BP 135 / 73; Pulse 63; Resp 17 S; Pulse Ox 97% on R/A; Pain 2/10; cc3 15:36 Body Mass Index 32.56 (80.74 kg, 157.48 cm) Procedures: 16:54 Lumbar Puncture: Patient placed in left lateral decubitus position. Draped using jr8 sterile technique. Prepped with chlorhexidine swabs. Collected 8 ml's of clear fluid. Sample sent to lab. Puncture site dressed with band aid, Patient tolerated well. Opening pressure prior to collection of CSF was 27 cmH2O. MDM: 15:42 Patient medically screened. jr8 19:13 Data reviewed: vital signs, nurses notes, lab test result(s), radiologic studies, CT jr8 scan, plain films. Data interpreted: Pulse oximetry: on room air is 100 %. Interpretation: normal. Counseling: I had a detailed discussion with the patient and/or guardian regarding: the historical points, exam findings, and any diagnostic results supporting the discharge/admit diagnosis, lab results, radiology results, the need for outpatient follow up, a neurologist, to return to the emergency department if symptoms worsen or persist or if there are any questions or concerns that arise at home. ED course: Discussed case with Dr. Ayala after everything was complete. Wants patient started on Topamax and Tizanidine for now. To have her call his office tomorrow morning. Feels that there is no indication for admission at this time. Patient hemodynamically stable and again without acute finding today. Will be sent home to follow up with Dr. Ayala. Patient has now had multiple rounds of blood work done along with CT's of the head, neck, and abdomen. MRI of the neck, and xray of chest along with lumbar puncture. All without acute finding . 05/05 16:07 Order name: Basic Metabolic Panel EDMS 05/05 16:07 Order name: CBC with Automated Diff EDMS 05/05 16:25 Order name: CBC with Automated Diff; Complete Time: 16:42 EDMS 05/05 16:29 Order name: Basic Metabolic Panel; Complete Time: 16:42 EDIN 05/05 17:12 Order name: CSF Glucose EDIN 05/05 17:12 Order name: CSF Total Protein [facility] 05/05 17:12 Order name: Body Fluid Cell Count; Complete Time: 18:25 [facility] 05/05 17:12 Order name: CSF SPECIMEN; Complete Time: 18:04 [facility] 05/05 15:48 Order name: IV; Complete Time: 15:56 [facility] 05/05 15:57 Order name: Lumbar Puncture Consent; Complete Time: 16:42 [facility] 05/05 15:57 Order name: Lumbar Puncture Setup; Complete Time: 16:42 [facility] 05/05 16:48 Order name: XRAY Chest (1 view); Complete Time: 19:13 [facility] 05/05 16:54 Order name: Urine Dipstick-Ancillary (obtain specimen); Complete Time: 18:46 [facility] 05/05 17:00 Order name: CT Abd/Pelvis - Without Cont; Complete Time: 19:05 [facility] 05/05 17:12 Order name: Cell Count Profile; Complete Time: 18:04 [facility] 05/05 17:12 Order name: CSF Culture [facility] 05/05 17:12 Order name: CSF Bacterial Antigens (Tube 1 [facility] 05/05 17:42 Order name: CSF Glucose; Complete Time: 17:43 EDIN 05/05 17:42 Order name: CSF Total Protein; Complete Time: 17:43 [facility] 05/05 18:51 Order name: Urine Dipstick--Ancillary (enter results); Complete Time: 19:13 eb 05/05 18:51 Order name: Urine --Ancillary (enter results); Complete Time: 19:13 eb Administered Medications: 16:52 Drug: NS 0.9% 1000 ml Route: IV; Rate: 1000 ml; Site: right antecubital; mg2 19:40 Drug: TORadol 30 mg Route: IVP; Site: right antecubital; cc3 20:10 Follow up: Response: No adverse reaction; Pain is decreased cc3 19:43 Drug: fentaNYL (PF) 50 mcg Route: IVP; Site: right antecubital; cc3 20:10 Follow up: Response: No adverse reaction; Pain is decreased cc3 Disposition: 05/06 07:19 Co-signature as Attending Physician, Baljinder Carrizales MD. rn Disposition: 05/05/18 19:26 Discharged to Home. Impression: Neuralgia and neuritis, unspecified, Other chronic pain. - Condition is Stable. - Discharge Instructions: Chronic Pain, Neuropathic Pain. - Prescriptions for Topamax 25 mg Oral tablet - take 1 tablet by ORAL route 2 times per day in the morning and evening; 60 tablet. Zanaflex 4 mg Oral Tablet - take 1 tablet by ORAL route every 8 hours As needed; 30 tablet. - Medication Reconciliation Form, Thank You Letter, Antibiotic Education, Prescription Opioid Use form. - Follow up: Jaret Ayala MD; When: Tomorrow; Reason: Recheck today's complaints, Continuance of care, Re-evaluation by your physician. - Problem is new. - Symptoms have improved. Signatures: Dispatcher [employer] EDIN Flora Paredes RN RN aj Nieto, Roman, MD MD rn Roszak, Josh, PA PA [facility] Benito Oneal RN RN mg2 Cordel, Charlene cc3 Corrections: (The following items were deleted from the chart) 05/05 18:05 15:48 CBC+H.LAB.BRZ ordered. EDIN EDMS 18:05 15:48 BASIC METABOLIC PANEL+C.LAB.BRZ ordered. EDIN EDMS 18:05 16:41 CSF Bacterial Antigens (Tube 1+BA.LAB.BRZ ordered. EDIN EDMS 18:05 16:41 CSF Culture+BA.LAB.BRZ ordered. EDIN EDMS 18:05 16:41 FLUID CELL COUNT,BODY+H.LAB.BRZ ordered. EDIN EDMS 18:05 16:41 SPINAL FLUID PROFILE+LAB.LAB.BRZ ordered. EDIN EDMS 19:25 19:13 ED course: Discussed case with Dr. Ayala after everything was complete. Wants kit patient started on Topamax and Tizanidine for now. To have her call his office tomorrow morning. Feels that there is no indication for admission at this time. Patient hemodynamically stable and again without acute finding today. Will be sent home to follow up with Dr. Ayala . kit 20:16 19:26 05/05/2018 19:26 Discharged to Home. Impression: Neuralgia and neuritis, cc3 unspecified; Other chronic pain. Condition is Stable. Prescriptions for Topamax 25 mg Oral tablet - take 1 tablet by ORAL route 2 times per day in the morning and evening; 60 tablet, Zanaflex 4 mg Oral Tablet - take 1 tablet by ORAL route every 8 hours As needed; 30 tablet. and Forms are Medication Reconciliation Form, Thank You Letter, Antibiotic Education, Prescription Opioid Use. Follow up: Jaret Ayala; When: Tomorrow; Reason: Recheck today's complaints, Continuance of care, Re-evaluation by your physician. Problem is new. Symptoms have improved. jr8
[2018-05-05] MEDS ORDERED: FENTANYL CITR 100 MCG/2 ML ONE (19:43)
[2018-05-05] MEDS ORDERED: KETOROLAC 30 MG/ML INJ ONE (19:43)
== END 2018-05-05 20:16 | disposition home or self-care (01) ==
LOC: ER 15:23
PROC: 009U3ZX Drainage of Spinal Canal, Percutaneous Approach, Diagnostic (ICD-10-PCS; principal; 2018-05-05)
DX: G89.29 Other chronic pain (principal); F17.210 Nicotine dependence, cigarettes, uncomplicated; E78.00 Pure hypercholesterolemia, unspecified; Z88.0 Allergy status to penicillin; Z88.5 Allergy status to narcotic agent; Z88.8 Allergy status to other drugs, medicaments and biological substances; Z91.010 Allergy to peanuts; Z91.040 Latex allergy status; Z91.048 Other nonmedicinal substance allergy status
CPT/HCPCS: 36415; 71045; 74176; 80048; 81003; 81025; 82945; 84157; 85025; 86403; 87070; 89050; J3010; J7030

== ENCOUNTER 2018-05-18 08:53 | Observation (INO) | payer SELFPAY ==
[2018-05-18] MEDS ORDERED: ONDANSETRON 4 MG/2 ML VIAL ONE (09:34)
[2018-05-18] MEDS ORDERED: METOCLOPRAMIDE 10 MG/2mL INJ ONE (09:34)
[2018-05-18] MEDS ORDERED: DEXAMETHASONE 10 MG/ML VIAL ONE (09:34)
[2018-05-18] MEDS ORDERED: NA CHLORIDE 0.9% 1,000 ML ONE (09:34)
[2018-05-18] MEDS ORDERED: FAMOTIDINE 20 MG/2 ML VIAL IV ONE (09:34)
[2018-05-18 09:56] LABS: Protime INR 1.04
[2018-05-18 10:00] LABS: Absolute Lymphocytes (CBC) 1.7 K/uL (0.7-4.9); Absolute Monocytes 0.5 K/uL (0.1-1.3); Basophils % 0.5 % (0-1.3); Eosinophils % 0.3 % (0-4.4); Hematocrit 41.2 % (36.0-45.0); Lymphocytes % 16.8 % (15.3-44.8); MCH 30.5 pg (27.0-35.0); MCV 89.6 fL (80-100); Monocytes % 4.5 % (3.3-12.3)
[2018-05-18 10:12] LABS: ALT/SGPT 48 U/L (12-78); AST/SGOT 17 U/L (15-37); Albumin 3.8 g/dL (3.4-5.0); Alkaline Phosphatase 78 U/L (45-117); BUN Blood Urea Nitrogen 5 mg/dL (7-18); Bicarbonate 25 mmol/L (21-32); Bilirubin Direct < 0.1 mg/dL (0-0.2); Bilirubin Total 0.2 mg/dL (0.2-1.0); Glucose Level 106 mg/dL (74-106); Magnesium 2.3 mg/dL (1.8-2.4); NT PRO-BNP 38 pg/mL (<125); Potassium 3.6 mmol/L (3.5-5.1); Protein, Total 7.3 g/dL (6.4-8.2); Sodium Level 142 mmol/L (136-145); Troponin (Emerg Dept Use Only) < 0.02 ng/mL (0.0-0.045)
--- NOTE | 2018-05-18 10:19 | RAD REPORT ---
EXAM DESCRIPTION: RAD - Chest Single View - 05/18/2018 10:03 am CLINICAL HISTORY: CHEST PAIN Chest pain. COMPARISON: Chest Single View dated 05/05/2018 FINDINGS: Portable technique limits examination quality. The lungs are grossly clear. The heart is normal in size. No displaced fractures. IMPRESSION: No acute intrathoracic process suspected.
--- NOTE | 2018-05-18 11:20 | EDPHYS ---
Physician Documentation [facility] Name: Luisa Lake Age: 42 yrs Sex: Female : 1975 Arrival Date: 05/18/2018 Time: 08:55 Bed 8 Private MD: Peter Noel ED Physician Gian Bonds HPI: 05/18 09:23 This 42 yrs old Female presents to ER via Ambulatory with complaints of cp Headache. 09:23 The patient complains of pain to the top of head and forehead. The patient describes cp the headache as waxing and waning. Onset: The symptoms/episode began/occurred 3 week(s) ago. Associated signs and symptoms: Pertinent positives: nausea, Photophobia nasal drainage. Severity of symptoms: in the emergency department the pain is unchanged, despite home interventions. Headache History: The patient has had previous headaches and this one is similar to previous episodes. the symptoms are aggravated by movement. 09:25 The patient or guardian reports chest pain that is located primarily in the anterior cp chest wall, left. 09:25 Onset: today. The chest pain is described as a pressure. Duration: The patient or cp guardian reports a single episode, that is still ongoing. 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 - Social history:: Smoking status: Patient uses tobacco products, smokes one pack cigarettes per day. - Ebola Screening: : No symptoms or risks identified at this time. ROS: 09:29 Constitutional: Negative for body aches, chills, fever, poor PO intake. cp 09:29 Eyes: Positive for photophobia, Negative for discharge, redness, vision loss. 09:29 ENT: Positive for rhinorrhea, Negative for drainage from ear(s), ear pain, sore throat, difficulty swallowing, difficulty handling secretions. 09:29 Cardiovascular: Positive for chest pain, Negative for edema, palpitations. 09:29 Respiratory: Negative for cough, shortness of breath, wheezing. 09:29 Abdomen/GI: Positive for nausea, Negative for vomiting, diarrhea, constipation, anorexia, black/tarry stool, rectal bleeding. 09:29 Back: Positive for pain at rest, of the low back area, Negative for injury or acute deformity, decreased range of motion. 09:29 : Negative for urinary symptoms. 09:29 Skin: Negative for cellulitis, rash. 09:29 Neuro: Positive for headache, Negative for altered mental status, syncope, near syncope, weakness. 09:29 All other systems are negative. Exam: 09:35 Constitutional: The patient appears in no acute distress, alert, awake, cp non-diaphoretic, non-toxic, well developed, well nourished. 09:35 Head/Face: Normocephalic, atraumatic. Eyes: Pupils equal round and reactive to light, cp extra-ocular motions intact. Lids and lashes normal. Conjunctiva and sclera are non-icteric and not injected. Cornea within normal limits. Periorbital areas with no swelling, redness, or edema. ENT: Nares patent. No nasal discharge, no septal abnormalities noted. Tympanic membranes are normal and external auditory canals are clear. Oropharynx with no redness, swelling, or masses, exudates, or evidence of obstruction, uvula midline. Mucous membranes moist. Chest/axilla: Normal chest wall appearance and motion. Nontender with no deformity. No lesions are appreciated. 09:35 Cardiovascular: Rate: normal, Rhythm: regular, Pulses: Pulses are 2+ in right radial artery and left radial artery. Heart sounds: murmur, not appreciated, Edema: is not appreciated, JVD: is not appreciated. 09:35 Respiratory: the patient does not display signs of respiratory distress, Respirations: normal, no use of accessory muscles, no retractions, no splinting, no tachypnea, labored breathing, is not present, Breath sounds: are clear throughout, no decreased breath sounds, no stridor, no wheezing. 09:35 Abdomen/GI: Inspection: abdomen appears normal, Bowel sounds: active, all quadrants, Palpation: abdomen is soft and non-tender, in all quadrants. 09:35 Back: pain, is absent, ROM is normal. 09:35 Musculoskeletal/extremity: Exam is negative for decreased range of motion, edema. 09:35 Skin: cellulitis, is not appreciated, no rash present. 09:35 Neuro: Orientation: to person, place \T\ time. Mentation: lucid, able to follow commands, Cerebellar function: is grossly normal, Motor: moves all fours, strength is normal, Sensation: is normal. 10:30 ECG was reviewed by the Attending Physician. Vital Signs: 09:09 BP 131 / 79; Pulse 74; Resp 18; Temp 98.7; Pulse Ox 96% ; Weight 77.56 kg; Height 5 ft. jl7 2 in. (157.48 cm); Pain 8/10; 10:16 BP 109 / 74; Pulse 71; Resp 14; Pulse Ox 98% on R/A; Pain 6/10; ss 11:00 BP 106 / 70; Pulse 70; Resp 15; Pulse Ox 100% on R/A; Pain 3/10; hb 12:00 BP 113 / 85; Pulse 80; Resp 16; Pulse Ox 100% on R/A; Pain 2/10; hb 13:03 BP 119 / 71; Pulse 81; Resp 16; Temp 98.0(TE); Pulse Ox 97% on R/A; Pain 5/10; ss 09:09 Body Mass Index 31.28 (77.56 kg, 157.48 cm) jl7 MDM: 09:04 Patient medically screened. 09:30 Differential diagnosis: cerebral vascular accident, acute myocardial infarction, cp intracerebral hemorrhage, meningitis, migraine, subarachnoid bleed. 11:10 Data reviewed: vital signs, nurses notes, lab test result(s), EKG, radiologic studies, cp plain films. Physician consultation: Judie Cunningham MD was called at 11:10, was contacted at 11:10, regarding admission, to the telemetry unit. 05/18 09:20 Order name: Basic Metabolic Panel; Complete Time: 10:16 cp 05/18 10:17 Interpretation: Normal except: CL 109; BUN 5. cp 05/18 09:20 Order name: CBC with Diff; Complete Time: 10:16 cp 05/18 10:41 Interpretation: Normal except: WBC 10.3; WHITNEY% 77.9. cp 05/18 09:20 Order name: LFT's; Complete Time: 10:16 cp 05/18 09:20 Order name: Magnesium; Complete Time: 10:16 cp 05/18 09:20 Order name: NT PRO-BNP; Complete Time: 10:16 cp 05/18 09:20 Order name: PT-INR; Complete Time: 10:16 cp 05/18 09:20 Order name: Troponin (emerg Dept Use Only); Complete Time: 10:16 cp 05/18 10:17 Interpretation: TROPED < 0.02; Reviewed. cp 05/18 09:20 Order name: XRAY Chest (1 view); Complete Time: 10:40 cp 05/18 10:41 Interpretation: Report review. cp 05/18 09:20 Order name: Urine Microscopic Only cp 05/18 12:01 Order name: Urine Dipstick--Ancillary (enter results) bd 05/18 12:04 Order name: Urine Dipstick-Ancillary EDMS 05/18 09:20 Order name: EKG; Complete Time: 09:21 cp 05/18 09:20 Order name: Cardiac monitoring; Complete Time: 09:37 cp 05/18 09:20 Order name: EKG - Nurse/Tech; Complete Time: 10:34 cp 05/18 09:20 Order name: IV Saline Lock; Complete Time: 09:38 cp 05/18 09:20 Order name: Labs collected and sent; Complete Time: 09:38 cp 05/18 09:20 Order name: O2 Per Protocol; Complete Time: 09:39 cp 05/18 09:20 Order name: O2 Sat Monitoring; Complete Time: 09:39 cp 05/18 09:20 Order name: Urine Dipstick-Ancillary (obtain specimen); Complete Time: 10:33 cp EC:30 Rate is 64 beats/min. Rhythm is regular. [place] interval is normal. QRS interval is normal. cp QT interval is normal. T waves are Inverted in leads V2, V3, V4. Interpreted by me. Reviewed by me. Administered Medications: 09:37 Drug: Pepcid 20 mg Route: IVP; Site: right antecubital; hb 10:34 Follow up: Response: No adverse reaction ss 09:37 Drug: Reglan 20 mg Route: IVP; Site: right antecubital; hb 10:34 Follow up: Response: No adverse reaction; Marked relief of symptoms ss 09:37 Drug: Decadron - Dexamethasone 10 mg Route: IVP; Site: right antecubital; hb 10:33 Follow up: Response: No adverse reaction; Marked relief of symptoms ss 09:38 Drug: NS 0.9% 1000 ml Route: IV; Rate: 1 bolus; Site: right antecubital; hb 11:43 Follow up: IV Status: Completed infusion; IV Intake: 1000ml ss 09:38 Drug: Zofran 4 mg Route: IVP; Site: right antecubital; hb 10:33 Follow up: Response: No adverse reaction; Nausea is decreased ss 11:29 Drug: Aspirin Chewable Tablet 324 mg Route: PO; ss 13:05 Follow up: Response: No adverse reaction ss Disposition: 13:30 Chart complete. cp 05/19 08:54 Co-signature as Attending Physician, Gian Bonds MD I agree with the assessment and kaleb plan of care. Disposition: 05/18/18 11:19 Hospitalization ordered by Judie Cunningham for Observation. Preliminary diagnosis are Chest pain, unspecified, Abnormal electrocardiogram [ECG] [EKG]. - Bed requested for Telemetry/MedSurg (observation). - Status is Observation. ss - Condition is Stable. - Problem is new. - Symptoms have improved. UTI on Admission? No Signatures: Dispatcher [employer] Nelia Sheikh RN Gian Winston MD MD cha Smirch, Shelby RN RN Gian Carmona PA PA cp Baxter, Heather, RN RN hb Leal, Jahala RN RN jl7 Corrections: (The following items were deleted from the chart) 05/18 12:44 11:19 Hospitalization Ordered by Judie Cunningham MD for Observation. Preliminary diagnosis dw is Chest pain, unspecified; Abnormal electrocardiogram [ECG] [EKG]. Bed requested for Telemetry/MedSurg (observation). Status is Observation. Condition is Stable. Problem is new. Symptoms have improved. UTI on Admission? No. cp 13:15 12:44 05/18/2018 11:19 Hospitalization Ordered by Judie Cunningham MD for Observation. ss Preliminary diagnosis is Chest pain, unspecified; Abnormal electrocardiogram [ECG] [EKG]. Bed requested for Telemetry/MedSurg (observation). Status is Observation. Condition is Stable. Problem is new. Symptoms have improved. UTI on Admission? No. dw 05/19 12:56 05/18 11:45 The patient was given aspirin in the Emergency Department. cp cp
--- NOTE | 2018-05-18 11:20 | ER ---
Nurse's Notes [facility] Name: uLisa Lake Age: 42 yrs Sex: Female : 1975 Arrival Date: 05/18/2018 Time: 08:55 Bed 8 Private MD: Peter Noel Diagnosis: Chest pain, unspecified;Abnormal electrocardiogram [ECG] [EKG] Presentation: 05/18 09:06 Presenting complaint: Patient states: C/o SCHMID x 3 weeks, worse last night. Burning in jl7 chest and arms x 3 weeks. Transition of care: patient was not received from another setting of care. Onset of symptoms was April 28, 2018. Risk Assessment: Do you want to hurt yourself or someone else? Patient reports no desire to harm self or others. Initial Sepsis Screen: Does the patient meet any 2 criteria? No. Patient's initial sepsis screen is negative. Does the patient have a suspected source of infection? No. Patient's initial sepsis screen is negative. Care prior to arrival: None. 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 - Social history:: Smoking status: Patient uses tobacco products, smokes one pack cigarettes per day. - Ebola Screening: : No symptoms or risks identified at this time. Screenin:41 Abuse screen: Denies threats or abuse. Denies injuries from another. Nutritional hb screening: No deficits noted. Tuberculosis screening: No symptoms or risk factors identified. Fall Risk None identified. Assessment: 09:41 General: Appears uncomfortable, Behavior is calm, cooperative, quiet, Denies fever, hb feeling ill, fatigue, chills. Pain: Complains of pain in low back area and forehead and top of head Pain currently is 8 out of 10 on a pain scale. Quality of pain is described as throbbing, Pain began 3 weeks ago, became worse yesterday. Is continuous. Neuro: Level of Consciousness is awake, alert, obeys commands, Oriented to person, place, time, situation, Data Recovery Planner are equal bilaterally Moves all extremities. Full function Gait is steady, Speech is normal, Facial symmetry appears normal, Pupils are PERRLA, Reports headache burning to bilateral arms. Cardiovascular: Capillary refill < 3 seconds is brisk in bilateral fingers. Respiratory: Airway is patent Respiratory effort is even, unlabored, Respiratory pattern is regular, symmetrical, Breath sounds are clear bilaterally. Denies cough, shortness of breath. GI: Patient currently denies diarrhea, vomiting. : No signs and/or symptoms were reported regarding the genitourinary system. EENT: Nares are clear Oral mucosa is moist. Throat is clear is pink. Derm: Skin is intact, is healthy with good turgor, Skin is dry, Skin is pink, warm \T\ dry. normal. Musculoskeletal: Circulation, motion, and sensation intact. Range of motion: intact in all extremities, Swelling absent. 10:17 Reassessment: Patient appears in no apparent distress at this time. Patient and/or ss family updated on plan of care and expected duration. Pain level reassessed. Patient is alert, oriented x 3, equal unlabored respirations, skin warm/dry/pink. Pt reports pain has decreased after medication administration. now 12/27. 11:00 Reassessment: Patient appears in no apparent distress at this time. Patient and/or hb family updated on plan of care and expected duration. Pain level reassessed. Patient is alert, oriented x 3, equal unlabored respirations, skin warm/dry/pink. 12:00 Reassessment: Patient appears in no apparent distress at this time. No changes from hb previously documented assessment. Patient and/or family updated on plan of care and expected duration. Pain level reassessed. Patient is alert, oriented x 3, equal unlabored respirations, skin warm/dry/pink. 13:03 Reassessment: Patient appears in no apparent distress at this time. Patient and/or ss family updated on plan of care and expected duration. Pain level reassessed. Patient is alert, oriented x 3, equal unlabored respirations, skin warm/dry/pink. report called to DIXON Simon. Vital Signs: 09:09 BP 131 / 79; Pulse 74; Resp 18; Temp 98.7; Pulse Ox 96% ; Weight 77.56 kg; Height 5 ft. jl7 2 in. (157.48 cm); Pain 8/10; 10:16 BP 109 / 74; Pulse 71; Resp 14; Pulse Ox 98% on R/A; Pain 6/10; ss 11:00 BP 106 / 70; Pulse 70; Resp 15; Pulse Ox 100% on R/A; Pain 3/10; hb 12:00 BP 113 / 85; Pulse 80; Resp 16; Pulse Ox 100% on R/A; Pain 2/10; hb 13:03 BP 119 / 71; Pulse 81; Resp 16; Temp 98.0(TE); Pulse Ox 97% on R/A; Pain 5/10; ss 09:09 Body Mass Index 31.28 (77.56 kg, 157.48 cm) jl7 ED Course: 08:55 Patient arrived in ED. as 08:56 Peter Noel MD is Private Physician. as 09:03 Gian Schwartz PA is PHCP. cp 09:03 Gian Bonds MD is Attending Physician. cp 09:07 Triage completed. jl7 09:09 Arm band placed on right wrist. Patient placed in an exam room, on a stretcher, on jl7 pulse oximetry. 09:22 Shanna Ernst RN is Primary Nurse. hb 09:40 Inserted saline lock: 20 gauge in right wrist, using aseptic technique. Blood hb collected. Patient maintains SpO2 saturation greater than 95% on room air. 09:41 Patient has correct armband on for positive identification. Bed in low position. Call hb light in reach. Side rails up X2. personnel monitor on. Pulse ox on. NIBP on. 09:56 X-ray completed. Portable x-ray completed in exam room. jr1 09:57 XRAY Chest (1 view) In Process Unspecified. EDMS 10:48 EKG done, by radiology technologist. reviewed by Gian ANGULO. at1 11:18 Judie Cunningham MD is Hospitalizing Provider. cp 13:03 No provider procedures requiring assistance completed. Patient admitted, IV remains in ss place. Administered Medications: 09:37 Drug: Pepcid 20 mg Route: IVP; Site: right antecubital; hb 10:34 Follow up: Response: No adverse reaction ss 09:37 Drug: Reglan 20 mg Route: IVP; Site: right antecubital; hb 10:34 Follow up: Response: No adverse reaction; Marked relief of symptoms ss 09:37 Drug: Decadron - Dexamethasone 10 mg Route: IVP; Site: right antecubital; hb 10:33 Follow up: Response: No adverse reaction; Marked relief of symptoms ss 09:38 Drug: NS 0.9% 1000 ml Route: IV; Rate: 1 bolus; Site: right antecubital; hb 11:43 Follow up: IV Status: Completed infusion; IV Intake: 1000ml ss 09:38 Drug: Zofran 4 mg Route: IVP; Site: right antecubital; hb 10:33 Follow up: Response: No adverse reaction; Nausea is decreased ss 11:29 Drug: Aspirin Chewable Tablet 324 mg Route: PO; ss 13:05 Follow up: Response: No adverse reaction ss Intake: 11:43 IV: 1000ml; Total: 1000ml. Outcome: 11:19 Decision to Hospitalize by Provider. cp 13:03 Condition: good 13:03 Instructed on the need for admit. 13:14 Admitted to Tele accompanied by tech, via wheelchair, room 406, Report called to sumit Simon RN 13:15 Patient left the ED. ss Signatures: Dispatcher [employer] EDMS Dyana Bergman jr1 Ana Jackson Shelby, RN RN Flora Calix, business analyst manager EKG Tat1 Gian Schwartz PA PA cp Baxter, Heather, RN RN hb Leal, Jahala RN RN jl7
[2018-05-18] MEDS ORDERED: ASPIRIN 81 MG CHEWABLE TABLET ONE (11:32)
[2018-05-18 12:03] LABS: Urine Blood TRACE (NEG); Urine Glucose NEGATIVE (NEG); Urine Protein NEGATIVE (NEG)
[2018-05-18] MEDS ORDERED: ALPRAZOLAM 0.25 MG TABLET PO PRN (12:05)
[2018-05-18] MEDS ORDERED: ACETAMINOPHEN 500 MG TAB PO PRN (12:05)
[2018-05-18] MEDS ORDERED: MORPHINE 2 MG/ML SYR IV PRN (12:05)
[2018-05-18] MEDS ORDERED: NITROGLYCERIN 0.4 MG/TAB SL PRN (12:05)
[2018-05-18] MEDS ORDERED: ZOLPIDEM TARTRATE 5 MG TABLET PO PRN (12:05)
[2018-05-18 12:07] LABS: Urine RBC <5 /HPF (NONE SEEN)
[2018-05-18 12:08] LABS: Urine Bacteria NONE SEEN /HPF (<20); Urine Culture Reflex Order NOT NEEDED
--- NOTE | 2018-05-18 13:54 | EKG ---
Test Date: 2018-05-18 Test Time: 10:23:52 Recharger: CHERELLE MEASUREMENT RESULTS: Intervals: Rate: 64 WA: 144 QRSD: 82 QT: 428 QTc: 441 Webster: P: 10 WA: 144 QRS: 15 T: -10 INTERPRETIVE STATEMENTS: Normal sinus rhythm T wave abnormality, consider anterior ischemia Abnormal ECG No previous ECG available for comparison Electronically Signed On 05-18-18 13:53:10 CDT by Pofririo Mclain
[2018-05-18 14:27] VITALS: BMI 31.2
[2018-05-18] MEDS: TRAMADOL HCL 50 MG TAB PO PRN (16:33)
[2018-05-18] MEDS ORDERED: ENOXAPARIN 40 MG/0.4 ML SQ SCH (17:00)
[2018-05-18] MEDS ORDERED: FENTANYL CITR 100 MCG/2 ML IV PRN (17:09)
[2018-05-18] MEDS: METOPROLOL TAR 25 MG TAB PO SCH (20:59)
[2018-05-18] MEDS: GABAPENTIN 300 MG CAP PO SCH (20:59)
[2018-05-18] MEDS ORDERED: HOME MED 1 EA UNK (Simvastatin [Simvastatin] 80 MG) PO SCH (21:00)
[2018-05-18] MEDS ORDERED: ATORVASTATIN 40 MG TAB PO SCH (21:00)
[2018-05-19 04:26] LABS: Absolute Lymphocytes (CBC) 2.5 K/uL (0.7-4.9); Absolute Monocytes 0.9 K/uL (0.1-1.3); Absolute Neutrophil 9.3 K/uL (1.8-8.0); Basophils % 0.4 % (0-1.3); Eosinophils % 0.1 % (0-4.4); Lymphocytes % 19.7 % (15.3-44.8); MCV 88.8 fL (80-100); MPV 8.9 fL (7.6-11.3); Monocytes % 6.7 % (3.3-12.3); RBC Red Blood Cell Count 4.27 M/uL (3.86-4.86)
[2018-05-19 05:06] LABS: BUN Blood Urea Nitrogen 8 mg/dL (7-18); Bicarbonate 29 mmol/L (21-32); Glucose Level 116 mg/dL (74-106); HDL Cholesterol 39 mg/dL (40-60); LDL Cholesterol, Calculated 97 (<130); Potassium 3.9 mmol/L (3.5-5.1); Sodium Level 140 mmol/L (136-145); Troponin I < 0.02 ng/mL (0.0-0.045)
[2018-05-19] MEDS: TRAMADOL HCL 50 MG TAB PO PRN ×2 (08:38→18:25)
--- NOTE | 2018-05-19 09:31 | P.HP ---
Certification for Inpatient Patient admitted to: Observation With expected LOS: <2 Midnights Patient will require the following post-hospital care: None Practitioner: I am a practitioner with admitting privileges, knowledge of patient current condition, hospital course, and medical plan of care. Services: Services provided to patient in accordance with Admission requirements found in Title 42 Section 412.3 of the Code of Federal Regulations Patient History Date of Service: 05/18/18 Reason for admission: Chest pain rule out acute coronary syndrome History of Present Illness: Patient is a 42-year-old female who has a significant prior history as mentioned below. She presents with chest pain. She was admitted to the hospital for further evaluation. She should have chronic pain issues. She also ended up on a walker and has lower extremity weakness. She will be admitted to the hospital for further workup. This is a 42-year-old female who has a prior history of a T12 compression fracture and chronic pain as well as a prior diagnosis of fibromyalgia, who has been following up with a neurologist on and off for many years. She has stopped seeing the neurologist about 3 years ago, but followed up with him per recommendations from the emergency room and her primary care provider. She started feeling poorly about a week ago when she went to [facility]; and at that time, they gave her anti-inflammatories, steroids, muscle relaxers, and pain medication for discharge. She was also given Neurontin along with Zoloft and tramadol for pain. She was also placed on a statin, for what reason I am not really sure. Especially, in light of her myopathy, I think this was a poor choice of medications. The patient was sent to the ER as she was not getting any better; and once again, she was given similar treatments along with Robaxin. The patient followed up with Dr. Noel, her primary care provider, and then she followed up with Dr. Ayala, her neurologist. Dr. Ayala recommended only taking the Robaxin and the Neurontin. The patient was also advised by Dr. Ayala to get multiple lab testing as well as imaging studies. Here, she had an MRI of her C-spine, which did not reveal any significant abnormalities except for some minimal spondylosis. There was no cord compression. The patient has had a lot of stressors in her life. Few years ago , her ; and then a year ago, her best friend ; and about a month ago, her mother . Unfortunately, she has dealt with a lot of deaths in her family and in her close friends, which has made her life extremely difficult. She has a lot of tension and stress, and she had actually filed a lawsuit against her 's job for him dying while he was at work. This has created a lot of stress in her life. I believe a lot of stressors in her life have ultimately led to a lot of her pain. She does have muscle tenderness on examination. Neurologically, her neurologic examination was unremarkable. She does have point tenderness on the back on both sides of her cervical spine and thoracic spine as well as anteriorly. She has some difficulty swallowing, and she said she had some microscopic hematuria. All of this can be evaluated and worked up further as an outpatient. Clinically, at this time, the patient does not need emergent hospitalization. She can follow up with her neurologist and primary care provider to get further assessment and treatment of her medical condition. 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 Otherwise, her symptoms will probably progress, and she will deal with more physical ailments as days progress. Allergies cefaclor [From Ceclor] Allergy (Verified 05/18/18 12:54) UNK codeine Allergy (Verified 05/18/18 16:25) Nausea/Vomiting diphenhydramine [From Benadryl] Allergy (Verified 05/18/18 13:47) Anaphylaxis duloxetine [From Cymbalta] Allergy (Verified 05/18/18 12:54) UNK iodine Allergy (Verified 05/18/18 12:57) UNK Latex, Natural Rubber Allergy (Verified 05/18/18 12:57) UNK morphine Allergy (Verified 05/18/18 13:50) Nausea/Vomiting peanut Allergy (Verified 05/18/18 13:50) Anaphylaxis Penicillins Allergy (Verified 05/18/18 13:50) Anaphylaxis Home Medications: Gabapentin 1 tab PO TID 05/18/18 Simvastatin 80 mg PO BEDTIME 05/18/18 traMADol HCL [Ultram*] 1 tab PO Q8HP PRN 05/18/18 - Past Medical/Surgical History Has patient received pneumonia vaccine in the past: No Diabetic: No -: HTN -: High Cholesterol -: Back pain -: Fibromyalgia -: C- Section -: Hystrectomy -: Ovarian Cyst removal - Family History Sister Medical History: Hypertension Notes: high cholesterol Father Medical History: Heart disease, Other (see notes) Notes: of [place] at the age of 46 Mother Medical History: Other (see notes) Notes: [place] - Social History Smoking Status: Current every day smoker Alcohol use: Yes CD- Drugs: No Caffeine use: Yes Place of Residence: Home Review of Systems 10-point ROS is otherwise unremarkable Physical Examination - Vital Signs Temperature: 97.9 F Blood Pressure: 120/70 Pulse: 58 Respirations: 19 Pulse Ox (%): 97 - Physical Exam General: Alert, In no apparent distress, Oriented x3 HEENT: Atraumatic, PERRLA, Mucous membr. moist/pink, EOMI, Sclerae nonicteric Neck: Supple, 2+ carotid pulse no bruit, No LAD, Without JVD or thyroid abnormality Respiratory: Clear to auscultation bilaterally, Normal air movement Cardiovascular: Regular rate/rhythm, Normal S1 S2, No murmurs Gastrointestinal: Normal bowel sounds, Soft and benign, Non-distended, No tenderness, No rebound, No guarding Musculoskeletal: No clubbing, No swelling, No tenderness Integumentary: No rashes Neurological: Normal gait, Normal speech, Normal strength at 5/5 x4 extr, Normal tone, Sensation intact, Cranial nerves 3-12 intact, Normal affect Lymphatics: No axilla or inguinal lymphadenopathy - Studies Laboratory Data (last 24 hrs) 05/18/18 09:30: PT 12.3, INR 1.04 05/18/18 09:30: WBC 10.3 D, Hgb 14.0, Hct 41.2, Plt Count 283 05/18/18 09:30: Sodium 142, Potassium 3.6, BUN 5 L, Creatinine 0.70, Glucose 106 , Magnesium 2.3, Total Bilirubin 0.2, AST 17, ALT 48, Alkaline Phosphatase 78 Assessment & Plan - Problems (Diagnosis) (1) Chest pain, rule out acute myocardial infarction Current Visit: Yes Status: Acute (2) HTN (hypertension) Current Visit: Yes Status: Acute - Plan Plan: 1. Serial troponins and EKG 2. Cardiology consultation 3. Echocardiogram and stress test 4. O2 as needed 5. IV morphine for pain 6. Nitro p.r.n. 7. GI/DVT prophylaxis Discharge Plan: Home Plan to discharge in: 24 Hours - Advance Directives Does patient have a Living Will: No Does patient have a Durable POA for Healthcare: No - Code Status/Comfort Care Code Status Assessed: Yes Code Status: Full Code Critical Care: No Time Spent Managing PTS Care (In Minutes): 50
--- NOTE | 2018-05-19 10:11 | RAD REPORT ---
EXAM DESCRIPTION: MRI - Lumbar Spine Wo Con - 05/19/2018 9:38 am CLINICAL HISTORY: Back pain, left lower extremity radiculopathy with COMPARISON: None. TECHNIQUE: Sagittal T1-weighted, T2-weighted and T2-STIR weighted sequences were obtained. Axial T1 -weighted and heavily T2-weighted sequenceswere obtained through the lumbar disc levels. FINDINGS: Lumbar bodies are normal in height and alignment. No suspicious marrow signal. No paraspi nal masses. T12 body shows approximately 50% compression fracture deformity with posterior wall heigh t preserved. This is a stable compression fracture with fatty marrow signal pattern. There is in Croh n train into the central canal from the posterior wall. This contacts the cord but does not cause roxie tral spinal stenosis or cord signal abnormality. T11-12 disc is desiccated without herniation or sign ificant disc bulge. Conus is normal with no clumping or thickening of the cauda equina. T12-L1 level: No significant findings. L1-2 level: No significant findings. L2-3 level: No significant findings. L3-4 level: No significant findings. L4-5 level: No significant findings. L5-S1 level: Disc is desiccated without loss in disc height. There is a midline annular fissure with minimal disc bulge changes. No canal stenosis. No foraminal encroachment. Tarlov cyst is present posterior to S2 as an incidental finding. IMPRESSION: L5-S1 disc desiccation, minimal disc bulge and annular fissure. No central spinal stenos is or foraminal encroachment. No abnormality seen to specifically explain left lower extremity radiculopathy. Old 50% compression fracture T12 body. Posterior wall encroaches on the central canal. There is conta ct of the cord but no cord signal abnormality or spinal stenosis.
[2018-05-19] MEDS: GABAPENTIN 300 MG CAP PO SCH ×3 (11:07→21:00)
[2018-05-19] MEDS: METOPROLOL TAR 25 MG TAB PO SCH ×2 (11:08→21:00)
[2018-05-19] MEDS: ASPIRIN EC 81 MG TAB PO SCH (11:09)
--- NOTE | 2018-05-19 14:52 | CON ---
CARDIOLOGY CONSULT Chief Complaint: Chest pain. History Of Present Illness: Ms. Lake is 42. She has been having chest pain for 3 months. This i s her first medical evaluation for the chest pain. She is known to have elevated total cholesterol a nd triglycerides and takes simvastatin and has it under very good control. Latest triglycerides 139, total cholesterol 164, LDL 97. She is a cigarette smoker. She does not have diabetes. Medications: Outpatient medications are tramadol, gabapentin, and simvastatin. Allergies: SHE IS ALLERGIC TO CEFACLOR, CODEINE, DIPHENHYDRAMINE, DULOXETINE, AND X-RAY CONTRAST MAT ERIAL. Physical Examination: General: She is alert, oriented, pleasant, not in distress. Skin: She has bilateral xanthelasma, no tendon xanthomas. Lungs: Clear. Cardiac: Normal. Extremities: Normal. No cyanosis, clubbing, or edema. Diagnostic Data: Her electrocardiogram is abnormal with anterior T-wave abnormality. Recommendations: I am going to recommend we do a nuclear stress test. We will do that tomorrow. Mónica sexton has a lot of other tests scheduled for today. This does not sound very much like coronary heart di lorraine, but given her risk factors, I think we should look into it by doing a pharmacologic nuclear stress test. MÓNICA/STEVE Voice ID: [id number] Report ID: [id number]
--- NOTE | 2018-05-19 15:26 | ECHO ---
HEIGHT: 5 ft 2 in WEIGHT: 171 lb 0 oz DATE OF STUDY: 05/19/[address]: Judie Cunningham MD 2-DIMENSIONAL: YES M.MODE: YES DOPPLER: YES COLOR FLOW: YES TDS: NO PORTABLE: NO DEFINITY: NO BUBBLE STUDY: NO DIAGNOSIS: CHEST PAIN CARDIAC HISTORY: CATHERIZATION: NO SURGERY: NO PROSTHETIC VALVE: NO PACEMAKER: NO MEASUREMENTS (cm) DIASTOLIC (NORMALS) SYSTOLIC (NORMALS) IVSd 1.0 (0.6-1.2) LA Diam 3.2 (1.9-4.0) LVEF 60% LVIDd 4.0 (3.5-5.7) LVIDs 2.8 (2.0-3.5) %FS 32% LVPWd 1.0 (0.6-1.2) Ao Diam 2.6 (2.0-3.7) 2 DIMENSIONAL ASSESSMENT: RIGHT ATRIUM: NORMAL LEFT ATRIUM: NORMAL RIGHT VENTRICLE: NORMAL LEFT VENTRICLE: NORMAL TRICUSPID VALVE: NORMAL MITRAL VALVE: NORMAL PULMONIC VALVE: NORMAL AORTIC VALVE: NORMAL PERICARDIAL EFFUSION: NONE AORTIC ROOT: NORMAL LEFT VENTRICULAR WALL MOTION: NORMAL. DOPPLER/COLOR FLOW: MILD TRICUSPID REGURGITATION. NORMAL RIGHT VENTRICULAR SYSTOLIC PRESSURE. COMMENTS: NORMAL 2D ECHO. MILD TRICUSPID REGURGITATION. TECHNOLOGIST: KETAN RECINOS
--- NOTE | 2018-05-19 18:52 | PN ---
Date of Progress Note: 05/19/2018 Subjective: The patient is seen and examined. Chart reviewed and case discussed with RN and Dr. Porter. The patient is scheduled for stress test in a.m. The patient still complains of some burning pain in and around her chest. Also reports some diarrhea, however, states that it has now become more solid. Review of Systems: Negative except as above. Medications: List reviewed. Physical Examination: Vital Signs: Temperature 97.9, heart rate 58, blood pressure 120/70, respirations 19, O2 of 97% on room air. General: Awake, alert, oriented x3, in some mild distress. An ill-appearing female, obese. CV: S1, S2. Regular rate and rhythm. Peripheral pulses present. No murmurs. Respiratory: Moving air well bilaterally. No wheezing or stridor. Gastrointestinal: Abdomen is soft, nontender, nondistended. Positive bowel sounds. Extremities: No clubbing, cyanosis, or edema. Neuro: Cranial nerves 2 through 12 intact grossly. No focal neurological deficit. Musculoskeletal: The patient does have some diffuse tenderness on her back. Laboratory Data: Sodium 140, potassium 3.9, chloride 107, CO2 of 29, BUN 8, creatinine 0.7, glucose 116, calcium 9.1. Troponin less than 0.02. Triglycerides 139, cholesterol 164, LDL 97, HDL 39. WBC 12.7, H and H 13.2 and 38, platelets 280, neutrophils 73%. Lumbar spine MRI shows L5-S1 disk desiccation, minimal disk bulge and annular fissure. No central spinal stenosis or foraminal encroachment. No abnormality seen to specifically explain left lower extremity radiculopathy. Old 50% compression fracture of T12 body, posterior wall encroaches on the central canal. There is contact of the cord, but no cord signal abnormality or spinal stenosis. Assessment And Plan: A 42-year-old female with: 1. Chest pain, rule out acute coronary syndrome. Cardiac enzymes are negative x2. Acute coronary syndrome has been ruled out. The patient will undergo stress test in the a.m. Appreciate Dr. Porter' input. We will continue chest pain guidelines for now. Use morphine and nitro p.r.n. for chest pain. 2. Essential hypertension, stable on home medications. 3. Hyperlipidemia. Lipid panel does not show any abnormalities. Given her myopathy, statin may not be the best medication for her. We will hold statin for now. 4. Fibromyalgia. MRI of lumbar spine done, showed some minimal disk bulge at L5-S1, but no spinal stenosis. The patient does follow up with Dr. Ayala, neurologist. We will continue gabapentin for numbness and tingling. 5. Obesity, BMI 31.3. Counseled. 6. Mild leukocytosis with absolute neutrophilia, unclear etiology, may be acute phase reactant secondary to pain or other. No infectious etiology apparent. We will continue to monitor. 7. Gastrointestinal and deep venous thrombosis prophylaxis addressed. Patienr refused lovenox. The patient will undergo a pharmacological stress test in the a.m. 8. Diarrhea, rule out Clostridium difficile. The patient is on contact precautions. We will obtain stool sample. The patient states that her stools are more solid and frequency has decreased. No recent antibiotic use. Doubt Clostridium difficile. /STEVE Voice ID: [id number] Report ID: [id number] LILIANA
[2018-05-19] MEDS ORDERED: METHYLPREDNISOLONE 40 MG INJ IV ONE (19:00)
[2018-05-19] MEDS ORDERED: RANITIDINE 150 MG TABLET PO SCH (23:30)
[2018-05-20] MEDS: TRAMADOL HCL 50 MG TAB PO PRN ×2 (02:17→12:40)
[2018-05-20 06:13] LABS: Absolute Lymphocytes (CBC) 1.7 K/uL (0.7-4.9); Absolute Monocytes 0.5 K/uL (0.1-1.3); Absolute Neutrophil 7.9 K/uL (1.8-8.0); Basophils % 0.1 % (0-1.3); Hematocrit 37.2 % (36.0-45.0); Lymphocytes % 17.1 % (15.3-44.8); MCH 31.2 pg (27.0-35.0); MPV 9.1 fL (7.6-11.3); Monocytes % 4.5 % (3.3-12.3); RBC Red Blood Cell Count 4.14 M/uL (3.86-4.86)
[2018-05-20] MEDS ORDERED: REGADENOSON 0.4 MG/5 ML SYR IV ONE (08:20)
[2018-05-20] MEDS: METOPROLOL TAR 25 MG TAB PO SCH (09:00)
[2018-05-20] MEDS: GABAPENTIN 300 MG CAP PO SCH ×2 (09:00→12:22)
[2018-05-20] MEDS: ASPIRIN EC 81 MG TAB PO SCH (10:09)
[2018-05-20 10:43] VITALS: O2SAT 95
--- NOTE | 2018-05-20 11:26 | RAD REPORT ---
EXAM DESCRIPTION: NM - Rest Stress Cardiac Imaging - 05/20/2018 11:15 am CLINICAL HISTORY: Chest pain COMPARISON: None. TECHNIQUE: The patient was administered approximately 10 mCi of Tc 99m Sestamibi prior to resting SP ECT imaging of the heart. The patient was then administered approximately 30 mCi of Tc 99m Sestamibi following exercise or pharmacologic stress. Multiplanar SPECT images were reviewed. FINDINGS: The end diastolic volume is 91 ml, the end systolic volume is 29 ml, and the ejection frac tion is 68 %. Moderately large fixed defect is present involving the mid and apical portion of the inferior wall. S maller fixed defect is present in the anterior wall near the apex. No stress-induced ischemic change confirmed. IMPRESSION: No stress-induced ischemic change seen. Fixed defects are present from scarring, attenuation artifact or a combination. Normal ventricular volumes and ejection fraction.
--- NOTE | 2018-05-20 12:05 | TREADPHA ---
DX: CHEST PAIN Date of Study: 05/20/2018 Ht: 5 2 Wt: 171 lb 0 oz Consulting Physician: SERG MEDICATIONS: TYLENOL, ASPIRIN, LOPRESSOR, NITROSTAT, SUBLIMAZE HISTORY: 42 YEAR OLD FEMALE HERE FOR CHEST PAIN. HISTORY OF BACK PAINS, FIBROMYALGIA AND HIGH CHOLESTEROL. PHYSICIAL EXAMINATION: RESTING B.P.: 123/76 RESTING H.R.: 65 RESTING EKG: NORMAL SINUS RHYTHM. NORMAL ST PROTOCOL: LEXISCAN EXERCISE TIME: 3:30 B.P. AT PEAK STRESS: 123/65 IMPRESSION: LEXISCAN STRESS TEST PERFORMED. CARDIOLITE INJECTED PER PROTOCOL. NO ARRHYTHMIAS NOTED. DENIES ANY CHEST PAIN. SEE NUCLEAR MEDICINE REPORT.
[2018-05-20 13:32] VITALS: BP 101/65; TEMP 97.2
--- NOTE | 2018-05-20 16:04 | PN ---
Date of Progress Note: 05/20/2018 This is a progress note for 05/20/2018. The patient was seen by Dr. Porter. She was admitted by Dr. Cunningham. She has a history of dyslipidemia, neuropathy. Came in with chest pain. Echocardiogram joaquin t was done yesterday was normal. Chest pain is probably noncardiac. Lexiscan is pending for today. AG/STEVE Voice ID: [id number] Report ID: [id number]
--- NOTE | 2018-05-21 05:03 | DS ---
Date of Discharge: 05/20/2018 Consultants: Dr. Porter, Dr. Mclain with Cardiology. Procedures: On 05/20/2018 for oncological stress test shows no stress-induced ischemia. Fixed defec ts present from scarring. Attenuation artifact or combination. Normal ventricular volumes and eject ion fraction. Discharge Diagnoses: 1.Chest pain. Acute coronary syndrome, ruled out. 2.Essential hypertension. 3.Mixed hyperlipidemia. 4.Fibromyalgia. 5.Degenerative disk disease of lumbar spine. 6.Obesity, BMI 31.3. 7.Neutrophilic leukocytosis, resolved. 8.Diarrhea. No further episodes of diarrhea. Doubt Clostridium difficile. Hospital Course: The patient is a 42-year-old female with past medical history of fibromyalgia with multiple tender points and significant degenerative disk disease as well as hypertension, hyperlipide alison, chronic back pain, who follows with Neurology for pain control, comes in with chest pain. The p atient was admitted to the hospital to rule out acute coronary syndrome. The patient's cardiac enzym es were negative. She was seen by business transformation consultant, Dr. Porter, who did not feel that this was cardiac i n nature. She had a lumbar spine MRI which showed degenerative disk disease, some L5-S1 disk desicca tion, minimal disk bulge, annular fissure, and no central spinal stenosis or foraminal encroachment. Compression fraction of the T12 body, which was present from previous. The patient underwent a stre ss test, which was negative for any stress-induced ischemia. The patient's chest pain resolved. She likely has atypical chest pain, resulting from her fibromyalgia versus other symptoms. The patient was instructed to follow up with her neurologist and to have her medications adjusted. She is on a l ower dose of gabapentin. Overall discharge condition is stable. Followup: Follow up with primary care physician in 2-3 days. Follow up with business transformation consultant, Dr. Chantale terrell in 2 weeks. Return to ER for worsening condition. Diet: Heart healthy. Activity: As tolerated. Medications: As per medication reconciliation list. Physical Examination: General: Awake, alert, oriented, no acute distress. CV: S1, S2. No murmurs. Respiratory: Moving air well bilaterally. Abdomen: Abdomen is soft, nontender, nondistended. Positive bowel sounds. Extremities: No clubbing, cyanosis, or edema. Neuro: Nonfocal. SA/MODL Voice ID: [id number] Report ID: [id number]
== END 2018-05-20 17:34 | disposition home or self-care (01) ==
LOC: ER 08:53 → ERHOLD 11:36 → 4TH 13:09
PROVIDERS: ADMIT Family Medicine; ATTEND Hospitalist
DX: R07.9 Chest pain, unspecified (principal); I10 Essential (primary) hypertension; E78.2 Mixed hyperlipidemia; M79.7 Fibromyalgia; M51.36 Other intervertebral disc degeneration, lumbar region; E66.9 Obesity, unspecified; Z68.31 Body mass index [BMI] 31.0-31.9, adult; D72.828 Other elevated white blood cell count; R19.7 Diarrhea, unspecified; Z91.041 Radiographic dye allergy status; Z88.0 Allergy status to penicillin; Z91.040 Latex allergy status; Z91.010 Allergy to peanuts
CPT/HCPCS: 36415; 71045; 72148; 78452; 80048; 80061; 80076; 81003; 81015; 83735; 83880; 84484; 85025; 85610; 87493; 93005; 93017; 93306; 94760; 96361; 96374; 96375; 99285; A9500; G0378; J1100; J2405; J2765; J2785; J2920; J7030

== ENCOUNTER 2018-05-27 05:52 | Emergency (ER) | payer SELFPAY ==
--- OUTSIDE RECORDS SUMMARY | 2018-05-27 05:55 | XMS REPORT | Continuity of Care Document ---
:1975 Author Organization Interface Problems Problem Status Onset Classification Date Comments Source Date Reported CHEST Active [facility] PAIN/BURNING 8 SENSATION Medications Medication Details Route Status Patient Ordering Order Source Instructions Provider Date Allergies, Adverse Reactions, Alerts Substance Category Reaction Severity Reaction Status Date Comments Source type Reported Immunizations Immunization Date Given Site Status Last Updated Comments Source Results Order Results Value Reference Date Interpretation Comments Source Name Range Chest Chest EXAM: Chest 1view DX 05/15 - 1view 1view DX /2017 - [facility] DX DATE: 05/15/2018 5:33 PM CDT INDICATION: Chest pain - chest pain Read by: Orestes Blue MD Dictated Date/time: 05/15/18 18:25 COMPARISON: None. Electronically Signed by: Orestes Blue MD 05/15/18 18:25 FINAL REPORT IMPRESSION: Mildly enlarged cardiac silhouette. No definite failure. No gross focal consolidation, significant pleural effusion or pneumothorax. SL: [id number] Vital Signs Vital Sign Value Date Comments Source Encounters Location Location Encounter Encounter Reason Attending ADM DC Status Source Details Type Number For Provider Date Date Visit Outpatient [id number] REMI 05/04 [facility] [place] Outpatient [id number] REMI 05/25 Active [facility] [place] Outpatient [id number] REMI 06/02 [facility] [place] Procedures Procedure Code Date Perfomer Comments Source
[2018-05-27] MEDS ORDERED: ONDANSETRON 4 MG/2 ML VIAL ONE (06:36)
[2018-05-27] MEDS ORDERED: MEPERIDINE HCL 25 MG/0.5 ML ONE (06:36)
[2018-05-27 06:57] LABS: Absolute Monocytes 0.6 K/uL (0.1-1.3); Basophils % 1.2 % (0-1.3); Eosinophils % 1.5 % (0-4.4); Hematocrit 42.3 % (36.0-45.0); Lymphocytes % 19.9 % (15.3-44.8); MCH 30.6 pg (27.0-35.0); MCV 89.7 fL (80-100); MPV 8.7 fL (7.6-11.3); Monocytes % 6.4 % (3.3-12.3); RBC Red Blood Cell Count 4.71 M/uL (3.86-4.86)
[2018-05-27 07:17] LABS: ALT/SGPT 63 U/L (12-78); AST/SGOT 17 U/L (15-37); Albumin 3.5 g/dL (3.4-5.0); Alkaline Phosphatase 84 U/L (45-117); BUN Blood Urea Nitrogen 10 mg/dL (7-18); Bicarbonate 26 mmol/L (21-32); Bilirubin Direct < 0.1 mg/dL (0-0.2); Bilirubin Total 0.3 mg/dL (0.2-1.0); Glucose Level 94 mg/dL (74-106); Lipase 147 U/L (73-393); Potassium 3.9 mmol/L (3.5-5.1); Protein, Total 6.9 g/dL (6.4-8.2); Sodium Level 143 mmol/L (136-145)
--- NOTE | 2018-05-27 08:35 | RAD REPORT ---
EXAM DESCRIPTION: CT - Abdomen Pelvis Wo Contrast - 05/27/2018 8:10 am CLINICAL HISTORY: Progressive abdominal pain, nausea, vomiting and diarrhea for 1 month COMPARISON: CT study May 05 TECHNIQUE: Axial [address] imaging of the abdomen and pelvis was performed without IV contrast. No IV contrast was given because of allergy, abnormal renal function, patient refusal or physician re quest. No oral contrast administered. All CT scans are performed using dose optimization technique as appropriate and may include automated exposure control or mA/KV adjustment according to patient size. FINDINGS: No suspicious findings in the lung bases. The liver, spleen and pancreas show no suspicious findings on non-contrast imaging. Gallbladder is co ntracted. No biliary tree dilatation. Gallstones can be occult on CT imaging. No hydronephrosis or suspicious renal mass. No significant adrenal finding. Isodense renal masses an d pyelonephritis cannot be excluded in the absence of IV contrast. The urinary bladder is without sig nificant finding. Uterus is absent. Ovaries are absent or atrophic. No adnexal mass. No dilated bowel loops or bowel wall thickening. No free air, free fluid or inflammatory stranding. N o mass or bulky lymphadenopathy. Patient has a very small umbilical hernia. Appendix is identified an d normal. No suspicious bony findings. IMPRESSION: Non-contrast enhanced CT abdomen and pelvis imaging show no significant or suspicious fi nding. No new or progressive finding since May 05. Full assessment is limited is the absence of IV contrast.
--- NOTE | 2018-05-27 08:47 | EDPHYS ---
Physician Documentation [facility] Name: Luisa Lake Age: 42 yrs Sex: Female : 1975 Arrival Date: 05/27/2018 Time: 05:56 Bed 8 Private MD: Peter Noel ED Physician Reza Chi HPI: 05/27 06:27 This 42 yrs old Female presents to ER via Ambulatory with complaints of jr8 Abdominal Pain, Nausea. 06:27 The patient presents with abdominal pain in the epigastric area, in the lower abdomen. jr8 Onset: The symptoms/episode began/occurred acutely, yesterday. The symptoms do not radiate. Associated signs and symptoms: Pertinent positives: nausea. The symptoms are described as burning. Modifying factors: The symptoms are alleviated by nothing, the symptoms are aggravated by food. Severity of pain: At its worst the pain was moderate in the emergency department the pain is unchanged. The patient has experienced similar episodes in the past, multiple times. The patient has been recently seen by a physician: the patient's primary care provider, with different complaint(s). Patient has been having ongoing abdominal pain and other neurologic symptoms. Has been seen multiple times in past for these symptoms. Stated that she continues to have this and trouble swallowing. Recently saw her neurologist again and has more tests ordered but not completed yet. Has not seen GI . 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 - Social history:: Smoking status: Patient uses tobacco products, smokes one pack cigarettes per day. - Ebola Screening: : No symptoms or risks identified at this time. ROS: 06:27 Eyes: Negative for injury, pain, redness, and discharge, ENT: Negative for injury, jr8 pain, and discharge, Neck: Negative for injury, pain, and swelling, Cardiovascular: Negative for chest pain, palpitations, and edema, Respiratory: Negative for shortness of breath, cough, wheezing, and pleuritic chest pain, Back: Negative for injury and pain, MS/Extremity: Negative for injury and deformity, Skin: Negative for injury, rash, and discoloration, Neuro: Negative for headache, weakness, numbness, tingling, and seizure. 06:27 Abdomen/GI: Positive for abdominal pain, nausea, diarrhea, Negative for abdominal cramps, abdominal distension, anorexia, dysphagia, hematemesis, black/tarry stool, rectal pain, rectal bleeding, bowel incontinence, flatulence. Exam: 06:27 Eyes: Pupils equal round and reactive to light, extra-ocular motions intact. Lids and jr8 lashes normal. Conjunctiva and sclera are non-icteric and not injected. Cornea within normal limits. Periorbital areas with no swelling, redness, or edema. ENT: Nares patent. No nasal discharge, no septal abnormalities noted. Tympanic membranes are normal and external auditory canals are clear. Oropharynx with no redness, swelling, or masses, exudates, or evidence of obstruction, uvula midline. Mucous membranes moist. Neck: Trachea midline, no thyromegaly or masses palpated, and no cervical lymphadenopathy. Supple, full range of motion without nuchal rigidity, or vertebral point tenderness. No Meningismus. Cardiovascular: Regular rate and rhythm with a normal S1 and S2. No gallops, murmurs, or rubs. Normal PMI, no JVD. No pulse deficits. Respiratory: Lungs have equal breath sounds bilaterally, clear to auscultation and percussion. No rales, rhonchi or wheezes noted. No increased work of breathing, no retractions or nasal flaring. Back: No spinal tenderness. No costovertebral tenderness. Full range of motion. Skin: Warm, dry with normal turgor. Normal color with no rashes, no lesions, and no evidence of cellulitis. MS/ Extremity: Pulses equal, no cyanosis. Neurovascular intact. Full, normal range of motion. Neuro: Awake and alert, GCS 15, oriented to person, place, time, and situation. Cranial nerves II-XII grossly intact. Motor strength 5/5 in all extremities. Sensory grossly intact. Cerebellar exam normal. Normal gait. 06:27 Abdomen/GI: Inspection: obese Bowel sounds: active, all quadrants, Palpation: soft, in all quadrants, moderate abdominal tenderness, in the epigastric area, right lower quadrant and left lower quadrant, mass, is not appreciated, rebound tenderness, is not appreciated, voluntary guarding, is not appreciated, involuntary guarding, is not appreciated, no appreciated organomegaly, Indicators: McBurney's point is not tender, Robertson's sign is negative, Rovsing's sign is negative, Liver: tenderness, is not appreciated. Vital Signs: 06:11 BP 128 / 76; Pulse 83; Resp 18; Temp 98.1(O); Pulse Ox 98% on R/A; Weight 76.2 kg (R); ak1 Height 5 ft. 2 in. (157.48 cm) (R); Pain 7/10; 08:03 BP 109 / 74; Pulse 63; Resp 16; Temp 98.8; Pulse Ox 99% ; Pain 6/10; sv 08:43 BP 106 / 71; Pulse 64; Resp 16; Pulse Ox 97% ; sv 06:11 Body Mass Index 30.73 (76.20 kg, 157.48 cm) ak1 MDM: 06:05 Patient medically screened. jr8 08:45 Differential diagnosis: bowel obstruction, cholecystitis, Cholelithiasis, gastritis, jr8 gastroesophageal reflux disease, GI Bleed, Hepatitis, non-specific abd pain, pancreatitis, Peptic Ulcer Disease, Pyelonephritis, Ureterolithiasis, urinary tract infection. Data reviewed: vital signs, nurses notes, lab test result(s), radiologic studies, CT scan. Data interpreted: Pulse oximetry: on room air is 97 %. Interpretation: normal. 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 Response to treatment: the patient's symptoms have mildly improved after treatment. Special discussion: Based on the patient's Hx, exam, and Dx evaluation, there is no indication for emergent surgery or inpatient Tx. It is understood by the patient/guardian that if the Sx's persist or worsen they need to return immediately for re-evaluation. 05/27 06:13 Order name: Basic Metabolic Panel; Complete Time: 07:28 05/27 06:13 Order name: CBC with Diff; Complete Time: 07:05 05/27 06:13 Order name: Creatinine for Radiology; Complete Time: 07:15 05/27 06:13 Order name: Hepatic Function; Complete Time: 07:28 05/27 06:13 Order name: Lipase; Complete Time: 07:28 05/27 07:44 Order name: CT Abd/Pelvis - Without Cont; Complete Time: 08:42 05/27 06:13 Order name: IV Saline Lock; Complete Time: 06:37 05/27 06:13 Order name: Labs collected and sent; Complete Time: 06:37 Administered Medications: 06:37 Drug: Demerol 25 mg Route: IVP; Site: left antecubital; ak1 07:20 Follow up: Response: No adverse reaction sv 06:37 Drug: Zofran 4 mg Route: IVP; Site: left antecubital; ak1 07:20 Follow up: Response: No adverse reaction sv Disposition: 17:07 Co-signature as Attending Physician, Reza Chi MD I agree with the assessment and wa plan of care. Disposition: 05/27/18 08:46 Discharged to Home. Impression: Abdominal and pelvic pain. - Condition is Stable. - Discharge Instructions: Abdominal Pain, Adult. - Medication Reconciliation Form, Thank You Letter, Antibiotic Education, Prescription Opioid Use form. - Follow up: Aubrey Dodson MD; When: 2 - 3 days; Reason: Recheck today's complaints, Continuance of care, Re-evaluation by your physician. - Problem is new. - Symptoms have improved. Signatures: Dispatcher [employer] Parisa Hunter, RN RN Alexx Rodríguez PA PA jr8 Ya Scales RN RN ak1 Reza Chi MD MD wa Corrections: (The following items were deleted from the chart) 09:09 08:46 05/27/2018 08:46 Discharged to Home. Impression: Abdominal and pelvic pain. sv Condition is Stable. Forms are Medication Reconciliation Form, Thank You Letter, Antibiotic Education, Prescription Opioid Use. Follow up: Aubrey Dodson; When: 2 - 3 days; Reason: Recheck today's complaints, Continuance of care, Re-evaluation by your physician. Problem is new. Symptoms have improved. jr8
--- NOTE | 2018-05-27 08:47 | ER ---
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 pt c/o burning pain when eating. pt c/o throat pain when swallowing. Transition of care: patient was not received from another setting of care. Onset of symptoms is unknown. Risk Assessment: Do you want to hurt yourself or someone else? Patient reports no desire to harm self or others. Initial Sepsis Screen: Does the patient meet any 2 criteria? No. Patient's initial sepsis screen is negative. Does the patient have a suspected source of infection? No. Patient's initial sepsis screen is negative. Care prior to arrival: None. 06:12 Method Of Arrival: Ambulatory ak1 06:12 Acuity: TYSHAWN 3 ak1 Triage Assessment: 06:16 General: Appears in no apparent distress. Behavior is cooperative. Pain: Complains of ak1 pain in abdomen. EENT: Reports difficulty swallowing. Neuro: No deficits noted. Cardiovascular: No deficits noted. Respiratory: No deficits noted. GI: Reports lower abdominal pain, upper abdominal pain, cramping, diarrhea, intolerance of food, nausea. : No signs and/or symptoms were reported regarding the genitourinary system. Derm: No signs and/or symptoms reported regarding the dermatologic system. Musculoskeletal: No signs and/or symptoms reported regarding the musculoskeletal system. 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 - Social history:: Smoking status: Patient uses tobacco products, smokes one pack cigarettes per day. - Ebola Screening: : No symptoms or risks identified at this time. Screenin:17 Abuse screen: Denies threats or abuse. Denies injuries from another. Nutritional ak1 screening: No deficits noted. Tuberculosis screening: No symptoms or risk factors identified. Fall Risk Ambulatory Aid- Crutches/Cane/Walker (15 pts). Assessment: 06:25 GI: Bowel sounds present X 4 quads. ak1 06:25 Reassessment: Patient appears in no apparent distress at this time. No changes from ak1 previously documented assessment. see triage assessment. 07:20 General: Appears in no apparent distress. uncomfortable, Behavior is calm, cooperative, sv appropriate for age. Pain: Complains of pain in abdomen Pain currently is 6 out of 10 on a pain scale. Neuro: Level of Consciousness is awake, alert, obeys commands, Oriented to person, place, time, situation, Moves all extremities. Full function. Respiratory: Respiratory effort is even, unlabored, Respiratory pattern is regular, symmetrical. GI:. Derm: Skin is normal. 09:08 Reassessment: Patient appears in no apparent distress at this time. No changes from sv previously documented assessment. Patient and/or family updated on plan of care and expected duration. Pain level reassessed. Patient is alert, oriented x 3, equal unlabored respirations, skin warm/dry/pink. Vital Signs: 06:11 BP 128 / 76; Pulse 83; Resp 18; Temp 98.1(O); Pulse Ox 98% on R/A; Weight 76.2 kg (R); ak1 Height 5 ft. 2 in. (157.48 cm) (R); Pain 7/10; 08:03 BP 109 / 74; Pulse 63; Resp 16; Temp 98.8; Pulse Ox 99% ; Pain 6/10; sv 08:43 BP 106 / 71; Pulse 64; Resp 16; Pulse Ox 97% ; sv 06:11 Body Mass Index 30.73 (76.20 kg, 157.48 cm) ak1 ED Course: 05:56 Patient arrived in ED. al2 05:56 Peter Noel MD is Private Physician. al2 06:05 [facility]. jr8 06:05 Reza Chi MD is Attending Physician. jr8 06:13 Triage completed. ak1 06:16 Arm band placed on Patient placed in an exam room, on a stretcher, on pulse oximetry, ak1 Patient notified of wait time. 06:18 Patient has correct armband on for positive identification. Bed in low position. Call ak1 light in reach. Side rails up X 1. Pulse ox on. NIBP on. 06:37 Missed attempt(s): 22 gauge in right antecubital area. ak1 06:38 Inserted saline lock: 20 gauge in left antecubital area, using aseptic technique. ak1 ,using aseptic technique. placed by Khadar goodwin RN Blood collected. 07:12 Parisa Giraldo RN is Primary Nurse. sv 08:11 CT Abd/Pelvis - Without Cont In Process Unspecified. EDMS 08:46 Aubrey Dodson MD is Referral Physician. jr8 09:08 No provider procedures requiring assistance completed. IV discontinued, intact, sv bleeding controlled, No redness/swelling at site. Pressure dressing applied. Administered Medications: 06:37 Drug: Demerol 25 mg Route: IVP; Site: left antecubital; ak1 07:20 Follow up: Response: No adverse reaction sv 06:37 Drug: Zofran 4 mg Route: IVP; Site: left antecubital; ak1 07:20 Follow up: Response: No adverse reaction sv Outcome: 08:46 Discharge ordered by . jr8 09:08 Discharged to home ambulatory. sv 09:08 Condition: stable 09:08 Discharge instructions given to patient, Instructed on discharge instructions, follow up and referral plans. Demonstrated understanding of instructions, follow-up care. 09:09 Patient left the ED. sv Signatures: Dispatcher [employer] Parisa Giraldo RN RN sv Roszak, Josh, PA PA jr8 Ya Scales RN RN akAntonella Key al2
[2018-05-27 09:28] VITALS: TEMP 98.8
[2018-05-27 09:29] VITALS: BP 106/71; O2SAT 97
== END 2018-05-27 09:09 | disposition home or self-care (01) ==
LOC: ER 05:52
DX: R10.2 Pelvic and perineal pain (principal); E78.00 Pure hypercholesterolemia, unspecified; F17.210 Nicotine dependence, cigarettes, uncomplicated; Z88.0 Allergy status to penicillin; Z88.5 Allergy status to narcotic agent; Z88.8 Allergy status to other drugs, medicaments and biological substances; Z91.010 Allergy to peanuts; Z91.040 Latex allergy status
CPT/HCPCS: 36415; 74176; 80048; 80076; 83690; 85025; 96374; 96375; 99284; J2175; J2405

== ENCOUNTER 2024-05-18 18:23 | Emergency (ER) | payer OTHER, SELFPAY ==
[2024-05-18] MEDS ORDERED: ASPIRIN 81 MG CHEWABLE TABLET ONE (19:36)
[2024-05-18 19:45] LABS: Specific Gravity 1.009 (1.005-1.030); Urine Bilirubin NEGATIVE (Negative); Urine Blood Negative (Negative); Urine Clarity Clear (Clear); Urine Color Light-Yellow (Yellow); Urine Glucose NEGATIVE (Negative); Urine Ketones NEGATIVE (Negative); Urine Microscopic Reflex YN NO UMIC; Urine Nitrite NEGATIVE (Negative); Urine Protein NEGATIVE (Negative); Urine Urobilinogen Normal (Normal); Urine pH 6.5 (5.0-7.0)
[2024-05-18 19:46] LABS: Absolute Basophils 0.1 K/uL (0-0.5); Absolute Lymphocytes (CBC) 2.5 K/uL (0.7-4.9); Absolute Monocytes 0.7 K/uL (0.1-1.3); Absolute Neutrophil 7.4 K/uL (1.8-8.0); Basophils % 0.6 % (0-1.3); Eosinophils % 0.4 % (0-4.4); Hematocrit 41.6 % (36.0-45.0); Hemoglobin 14.6 g/dL (12.0-15.0); Lymphocytes % 23.6 % (15.3-44.8); MCH 31.8 pg (27.0-35.0); MCV 90.8 fL (80-100); MPV 7.6 fL (7.6-11.3); Monocytes % 6.3 % (3.3-12.3); Neutrophils % 69.1 % (41.7-73.7); Platelets 293 thou/uL (152-406); RBC Red Blood Cell Count 4.58 M/uL (3.86-4.86); Red Cell Distribution Width 12.7 % (12.1-15.2)
--- NOTE | 2024-05-18 19:52 | RAD REPORT ---
EXAMINATION: ONE VIEW CHEST XR CLINICAL INDICATION: CHEST PAIN TECHNIQUE: Frontal chest projection is submitted. Examination is limited by patient positioning and t echnique. COMPARISON: No prior exam. FINDINGS: The lungs are well inflated and clear. The heart is upper limit of normal in size. No displaced fract ures identified. IMPRESSION: No acute intrathoracic abnormalities.
[2024-05-18 20:07] LABS: ALT/SGPT 21 U/L (13-56); AST/SGOT 13 U/L (15-37); Albumin 4.1 g/dL (3.4-5.0); Albumin/Globulin Ratio 1.1 (1.1-1.8); Alkaline Phosphatase 63 U/L (45-117); Anion Gap 5.1 mEq/L (5.0-15.0); BUN Blood Urea Nitrogen 11 mg/dL (7-18); Bicarbonate 31 mEq/L (21-32); Bilirubin Total 0.2 mg/dL (0.2-1.0); Globulin 3.7 g/dL (2.3-3.5); Glomerular Filtration Rate 101 ml/min (=/>90); Glucose Level 93 mg/dL (74-106); Lipase 39 U/L (13-75); NT PRO-BNP 32 pg/mL (<125); Potassium 3.1 mEq/L (3.5-5.1); Protein, Total 7.8 g/dL (6.4-8.2); Sodium Level 138 mEq/L (136-145)
[2024-05-18 20:09] LABS: Troponin High Sensitivity < 3.0 pg/mL (<58.9)
[2024-05-18] MEDS ORDERED: POTASSIUM CL SA 10 MEQ TAB PO ONE (20:44)
--- NOTE | 2024-05-18 21:08 | RAD REPORT ---
EXAMINATION: CT ABDOMEN AND PELVIS WITHOUT CONTRAST CLINICAL INDICATION: ABD PAIN TECHNIQUE: CT abdomen and pelvis was performed, without IV contrast, as per department protocol. Axia l, sagittal and coronal reconstructions were obtained. One or more of the following dose reduction techniques were used: Automated exposure control, adjustment of the mA and kV according to the patien t size, and iterative reconstruction. Unless otherwise specified, incidental findings do not require dedicated imaging follow-up. COMPARISON: 05/27/2018 FINDINGS: The lack of intravenous contrast limits the sensitivity of this exam for evaluation of solid visceral organs, vascular structures, and retroperitoneum. LOWER CHEST: The visualized lung bases are clear. LIVER:Normal in size and contour. No focal lesion. Grossly unremarkable gallbladder. SPLEEN: Normal size. No focal lesion. PANCREAS: No mass, ductal dilation, or kulwinder-pancreatic fluid. ADRENALS: Normal; no mass. KIDNEYS AND URETERS: Normal size and contour. No hydronephrosis. URINARY BLADDER: Normal contour. GASTROINTESTINAL TRACT: No evidence of bowel obstruction, significant free fluid, free air or abscess . APPENDIX: Normal appendix. LYMPH NODES: No lymphadenopathy. MUSCULOSKELETAL: Mild compression deformity of T12 vertebral body, chronic. ADDITIONAL FINDINGS: None. IMPRESSION: No acute or concerning abnormalities in the abdomen or pelvis, with evaluation limited by lack of IV contrast.
--- NOTE | 2024-05-18 23:39 | EDPHYS ---
Physician Documentation [facility] Name: Luisa Lake Age: 48 yrs Sex: Female : 1975 Arrival Date: 05/18/2024 Time: 18:23 Bed 19 Private MD: ED Physician Tucker Perez HPI: 05/18 23:38 This 48 yrs old Female presents to ER via Ambulatory with complaints of Chest Pain. kb 23:38 Pt is a 48 year old female who presents for chest pain, abd pain that started upon kb waking this morning. denies nausea, shortness of breath, palpitations. No aggravating or alleviating factors. 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 - Infectious Disease History:: Denies. - Social history:: Smoking status: Patient reports the use of cigarette tobacco products, unknown amount. ROS: 22:51 Constitutional: As per HPI kb Exam: 22:51 Constitutional: This is a well developed, well nourished patient who is awake, alert, kb and in no acute distress. Head/Face: Normocephalic, atraumatic. ENT: Moist Mucous membranes Cardiovascular: Regular rate Respiratory: Respirations even and unlabored. No increased work of breathing. Talking in full sentences Abdomen/GI: Soft, non-tender. No distention Skin: Warm, dry with normal turgor. Normal color. MS/ Extremity: Pulses equal, no cyanosis. Neurovascular intact. Full, normal range of motion. Neuro: Awake and alert, GCS 15, oriented to person, place, time, and situation. 22:51 ECG was reviewed by the Attending Physician. Vital Signs: 18:37 BP 116 / 74; Pulse 99; Resp 18; Temp 97.4(TE); Pulse Ox 100% on R/A; Weight 62.14 kg; cm10 Height 5 ft. 2 in. ; Pain 5/10; 19:38 BP 125 / 75; Pulse 88; Resp 18; Pulse Ox 99% ; bp 20:30 BP 118 / 76; Pulse 86; Resp 18; Pulse Ox 99% ; cp4 21:30 BP 107 / 62; Pulse 78; Resp 18; Pulse Ox 99% ; cp4 22:30 BP 107 / 64; Pulse 79; Resp 18; Pulse Ox 98% ; cp4 23:30 BP 118 / 72; Pulse 77; Resp 18; Pulse Ox 98% ; cp4 18:37 Body Mass Index 25.06 (62.14 kg, 157.48 cm) cm10 18:37 Pain Scale: Adult cm10 MDM: 18:36 Medical Screening Exam initiated kb 22:52 Data reviewed: vital signs, nurses notes. kb 23:37 Differential diagnosis: acute mi, arrhythmia, palpitations, abnormal electrolytes, kb GERD, pancreatitis. Counseling: I had a detailed discussion with the patient and/or guardian regarding the historical points, exam findings, and any diagnostic results supporting the discharge/admit diagnosis, lab results, radiology results, the need for outpatient follow up, a family practitioner, to return to the emergency department if symptoms worsen or persist or if there are any questions or concerns that arise at home. 05/18 18:43 Order name: CBC with Diff; Complete Time: 19:54 kb 05/18 18:43 Order name: Magnesium; Complete Time: 20:17 kb 05/18 18:43 Order name: NT PRO-BNP; Complete Time: 20:17 kb 05/18 18:43 Order name: Troponin HS; Complete Time: 20:17 kb 05/18 18:43 Order name: CMP; Complete Time: 20:17 kb 05/18 18:43 Order name: Lipase; Complete Time: 20:17 kb 05/18 18:43 Order name: Test, Urine; Complete Time: 19:54 kb 05/18 18:43 Order name: Urinalysis w/ reflexes; Complete Time: 19:54 kb 05/18 21:34 Order name: Troponin High Sensitivity; Complete Time: 23:37 kb 05/18 18:43 Order name: XRAY Chest (1 view); Complete Time: 19:54 kb 05/18 20:57 Order name: Abdomen ; Complete Time: 21:08 EDMS 05/18 18:43 Order name: Cardiac monitoring; Complete Time: 19:33 kb 05/18 18:43 Order name: EKG - Nurse/Tech; Complete Time: 19:33 kb 05/18 18:43 Order name: IV Saline Lock; Complete Time: 19:33 kb 05/18 18:43 Order name: Labs collected and sent; Complete Time: 19:33 kb 05/18 18:43 Order name: O2 Per Protocol; Complete Time: :33 kb 05/18 18:43 Order name: O2 Sat Monitoring; Complete Time: 19:33 kb EC:51 Rate is 91 beats/min. Rhythm is regular. QRS [place] is Normal. CO interval is normal at kb 158 msec. QRS interval is normal at 78 msec. QT interval is normal at 482 msec. Administered Medications: 19:38 Drug: Aspirin PO Chewable Tablet 324 mg PO once; 81 mg tablets x 4 Route: PO; bp 21:04 Drug: Potassium Chloride PO 40 mEq PO once Route: PO; cp4 21:30 Follow up: Response: No adverse reaction cp4 Disposition: 20:18 Co-signature as Attending Physician, Tucker Perez I agree with the assessment ci and plan of care. I reviewed the patient's care provided by the Advanced Practice Provider and agree with the diagnosis and treatment plan. Disposition Summary: 05/18/24 23:39 Discharge Ordered Notes: Location: Home kb Condition: Stable kb Diagnosis - Chest pain, unspecified kb Followup: kb - With: Emergency Department - When: As needed - Reason: Worsening of condition Followup: kb - With: Private Physician - When: 2 - 3 days - Reason: Recheck today's complaints, Continuance of care, Re-evaluation by your physician Discharge Instructions: - Discharge Summary Sheet kb - Nonspecific Chest Pain, Adult kb Forms: - Medication Reconciliation Form kb - Antibiotic Education kb - Prescription Opioid Use kb - Patient Portal Instructions kb - Leadership Thank You Letter kb Signatures: Dispatcher [employer] [facility] Nany Bain FNP-C FNP-Lee Romero, RN RN Miryam Stevenson RN RN cmMonisha Schwab cpTucker Hensley ci Corrections: (The following items were deleted from the chart) 18:44 18:44 CBC+H.LAB.BRZ ordered. EDMS EDMS 18:44 18:44 MAGNESIUM+C.LAB.BRZ ordered. EDMS EDMS 18:44 18:44 PROBNP+C.LAB.BRZ ordered. EDMS EDMS 18:44 18:44 Troponin High Sensitivity+C.LAB.BRZ ordered. EDMS EDMS 18:44 18:44 COMPREHENSIVE METABOLIC PANEL+C.LAB.BRZ ordered. EDMS EDMS 18:44 18:44 LIPASE+C.LAB.BRZ ordered. EDMS EDMS 18:44 18:44 Test, Urine+UC.LAB.BRZ ordered. EDMS EDMS 18:44 18:44 Urinalysis+U.LAB.BRZ ordered. EDMS EDMS 18:44 18:44 Chest Single View+RAD.RAD.BRZ ordered. EDMS EDMS 18:44 18:44 Abdomen Pelvis W Con+CT.RAD.BRZ ordered. EDMS EDMS
--- NOTE | 2024-05-18 23:39 | ER ---
Nurse's Notes [facility] Name: Luisa Lake Age: 48 yrs Sex: Female : 1975 Arrival Date: 05/18/2024 Time: 18:23 Bed 19 Private MD: Diagnosis: Chest pain, unspecified Presentation: 05/18 18:37 Chief complaint: Patient states: Chest pain to the center of chest that radiates to cm10 left arm and to back onset this morning. Coronavirus screen: Client denies travel out of the [place] in the last 14 days. Ebola Screen: Patient denies travel to an Ebola-affected area in the 21 days before illness onset. No symptoms or risks identified at this time. Initial Sepsis Screen: Does the patient meet any 2 criteria? No. Patient's initial sepsis screen is negative. Does the patient have a suspected source of infection? No. Patient's initial sepsis screen is negative. Risk Assessment: Do you want to hurt yourself or someone else? Patient reports no desire to harm self or others. Onset of symptoms was May 18, 2024. 18:37 Method Of Arrival: Ambulatory cm10 18:37 Acuity: TYSHAWN 2 cm10 Triage Assessment: 18:41 General: Appears in no apparent distress. uncomfortable, Behavior is calm, cooperative. cm10 Neuro: No deficits noted. Level of Consciousness is awake, alert, obeys commands, Oriented to person, place, time, situation, Appropriate for age. Respiratory: No deficits noted. Airway is patent Respiratory effort is even, unlabored, Respiratory pattern is regular, symmetrical. 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 - Infectious Disease History:: Denies. - Social history:: Smoking status: Patient reports the use of cigarette tobacco products, unknown amount. Screenin:53 [facility] ED Fall Risk Assessment (Adult) History of falling in the last 3 months, cp4 including since admission No falls in past 3 months (0 pts) Confusion or Disorientation No (0 pts) Intoxicated or Sedated No (0 pts) Impaired Gait No (0 pts) Mobility Assist Device Used No (0 pt) Altered Elimination No (0 pt) Score/Fall Risk Level 0 - 2 = Low Risk Oriented to surroundings, Maintained a safe environment, Assessed \T\ reinforced patient's understanding of fall precautions, Hourly rounding (assess needs \T\ fall precautionary measures) done. Abuse screen: Denies threats or abuse. Nutritional screening: No deficits noted. Tuberculosis screening: No symptoms or risk factors identified. Assessment: 19:53 General: Appears in no apparent distress. comfortable, Behavior is calm, cooperative, cp4 appropriate for age. Pain: Complains of pain in chest Pain radiates to left arm Pain currently is 5 out of 10 on a pain scale. Pain began this morning. Neuro: Level of Consciousness is awake, alert, obeys commands, Oriented to person, place, time. Cardiovascular: Patient's skin is warm and dry. Cardiovascular: Reports chest pain, Rhythm is sinus rhythm. Respiratory: Airway is patent Respiratory effort is even, unlabored. GI: No signs and/or symptoms were reported involving the gastrointestinal system. : No signs and/or symptoms were reported regarding the genitourinary system. EENT: No signs and/or symptoms were reported regarding the EENT system. Derm: No signs and/or symptoms reported regarding the dermatologic system. Musculoskeletal: No signs and/or symptoms reported regarding the musculoskeletal system. Vital Signs: 18:37 BP 116 / 74; Pulse 99; Resp 18; Temp 97.4(TE); Pulse Ox 100% on R/A; Weight 62.14 kg; cm10 Height 5 ft. 2 in. ; Pain 5/10; 19:38 BP 125 / 75; Pulse 88; Resp 18; Pulse Ox 99% ; bp 20:30 BP 118 / 76; Pulse 86; Resp 18; Pulse Ox 99% ; cp4 21:30 BP 107 / 62; Pulse 78; Resp 18; Pulse Ox 99% ; cp4 22:30 BP 107 / 64; Pulse 79; Resp 18; Pulse Ox 98% ; cp4 23:30 BP 118 / 72; Pulse 77; Resp 18; Pulse Ox 98% ; cp4 18:37 Body Mass Index 25.06 (62.14 kg, 157.48 cm) cm10 18:37 Pain Scale: Adult 10 ED Course: 18:26 Patient arrived in ED. mg5 18:35 Nany Bain FNP-C [facility] kb 18:35 Tucker Perez is Attending Physician. kb 18:38 Triage completed. cm10 18:41 Arm band placed on right wrist. Patient placed in waiting room. EKG completed in cm10 triage. Results shown to MD. 18:41 EKG done, by ED staff, reviewed by Nany ARANDA. cm10 19:13 Lee Aponte, RN is Primary Nurse. bp 19:33 CMP Sent. ty 19:34 XRAY Chest (1 view) In Process Unspecified. EDMS 19:34 Lipase Sent. ty 19:34 Test, Urine Sent. ty 19:34 Urinalysis w/ reflexes Sent. ty 19:34 CBC with Diff Sent. ty 19:34 Magnesium Sent. ty 19:34 NT PRO-BNP Sent. ty 19:34 Troponin HS Sent. ty 19:53 Placed in gown. Bed in low position. Call light in reach. Side rails up X 1. Provided cp4 Education on: chest pain. Client placed on continuous cardiac and pulse oximetry monitoring. NIBP monitoring applied. athletic monitor on. Pulse ox on. NIBP on. 19:53 No provider procedures requiring assistance completed. Inserted saline lock: 20 gauge cp4 in right antecubital area, using aseptic technique. Blood collected. Flushed with 10 mL NS. Patient maintains SpO2 saturation greater than 95% on room air. 20:06 Primary Nurse role handed off by Lee Aponte, RN cp4 20:06 Monisha Dennis is Primary Nurse. cp4 20:57 Abdomen In Process Unspecified. EDMS 23:05 Troponin High Sensitivity Sent. cp4 05/19 00:12 intact, bleeding controlled, No redness/swelling at site. Pressure dressing applied. cp4 Administered Medications: 05/18 19:38 Drug: Aspirin PO Chewable Tablet 324 mg PO once; 81 mg tablets x 4 Route: PO; bp 21:04 Drug: Potassium Chloride PO 40 mEq PO once Route: PO; cp4 21:30 Follow up: Response: No adverse reaction cp4 Medication: 19:53 VIS not applicable for this client. cp4 Outcome: 23:39 Discharge ordered by MD. [place] 05/19 00:12 Discharged to home ambulatory, cp4 Condition: stable Discharge instructions given to patient, Instructed on discharge instructions, follow up and referral plans. Demonstrated understanding of instructions, follow-up care, 00:13 Patient left the ED. cp4 Signatures: Dispatcher [employer] [facility] Nany Bain, SPRING FORMER MACHINE-C SPRING FORMER MACHINE-Lee Romero, RN RN Miryam Stevenson RN RN cm10 Alka Barrera mg5 Monisha Dennis cp4 Vance Wilson ty
[2024-05-19 00:24] VITALS: TEMP 97.4
[2024-05-19 00:29] VITALS: O2SAT 98
[2024-05-19 00:30] VITALS: BP 118/72
--- NOTE | 2024-05-19 11:07 | EKG ---
Test Date: 2024-05-18 Test Time: 18:34:51 Manager Of Pharmacy: BUZZ MEASUREMENT RESULTS: Intervals: Rate: 91 TX: 158 QRSD: 78 QT: 392 QTc: 482 [place]: P: 42 TX: 158 QRS: 63 T: -1 INTERPRETIVE STATEMENTS: Normal sinus rhythm Nonspecific T wave abnormality Prolonged QT Abnormal ECG Compared to ECG 05/18/2018 10:23:52 Prolonged QT interval now present Possible ischemia no longer present T-wave abnormality still present Electronically Signed On 05-19-24 11:06:47 CDT by Bora Mercer
== END 2024-05-19 00:13 | disposition home or self-care (01) ==
LOC: ER 18:23
DX: R07.9 Chest pain, unspecified (principal); E78.00 Pure hypercholesterolemia, unspecified; Z72.0 Tobacco use
CPT/HCPCS: 36415; 71045; 74176; 80053; 81003; 81025; 83690; 83735; 83880; 84484; 85025; 93005; 99285